=== PATIENT | female | born 1990 | race African-American/Black ===

== ENCOUNTER 2016-07-08 21:43 | Emergency (ER) | payer OTHER ==
[2016-07-08 21:54] VITALS: BMI 33.0
[2016-07-08 22:28] LABS: URINE APPEARANCE SLCLOUDY; URINE BILIRUBIN NEGATIVE (NEGATIVE); URINE BLOOD NEGATIVE (NEGATIVE); URINE COLOR YELLOW; URINE GLUCOSE (UA) NEGATIVE (NEGATIVE); URINE KETONE NEGATIVE (NEGATIVE); URINE LEUK ESTERASE NEGATIVE (NEGATIVE); URINE NITRITE NEGATIVE (NEGATIVE); URINE PROTEIN NEGATIVE (NEGATIVE); URINE UROBILINOGEN 2.0 E.U/dl E.U./dl (0.2-1.0)
--- NOTE | 2016-07-08 22:40 | PDOC ---
History of Present Illness - History of Present Illness Initial Comments: 07/08/16 22:57 The patient is a 25 year old, 6 week female, , with a significant past medical history of hypertension (during her ), who presents to the emergency department with right lower quadrant pain and low back pain for 2 days. She states her symptoms started as intermittent, however, has been constant since 4AM this morning despite taking Tylenol. She describes her RLQ pain as a dull stabbing and denies radiation of pain. She reports feeling sore to her lower back and bilateral hips. She states she had an ultrasound at [facility], but it was too early to see anything. She reports he next appointment at [facility] is next week. She denies chest pain, shortness of breath, headache and dizziness. She denies fever, chills, nausea, vomit, diarrhea and constipation. She denies dysuria, frequency, urgency and hematuria. LMP:05/28/16 Allergies: NKDA Past surgical history: Social history: denies toxic habits <Consuelo Ward - Last Filed: 07/09/16 02:03> <Natalya Calderón - Last Filed: 07/09/16 02:40> - General Chief Complaint: Pain, Acute Stated Complaint: 6 WEEK PREG, PAIN LOWER SIDE Time Seen by Provider: 07/08/16 22:03 Past History <Consuelo Ward - Last Filed: 07/09/16 02:03> - Past Medical History Asthma: No Cancer: No Cardiac Disorders: No Diabetes: No HTN: No Seizures: No Thyroid Disease: No - Reproductive History Is Patient Now?: Yes (#): 2 Para: 1 Therapeutic (s) & number: No Spontaneous : 1 - Immunization History Immunization Up to Date: Yes - Psycho/Social/Smoking Cessation Hx Anxiety: No Suicidal Ideation: No Smoking Status: No Smoking History: Never smoked Have you smoked in the past 12 months: No Number of Cigarettes Smoked Daily: 0 Information on smoking cessation initiated: No Hx Alcohol Use: No Drug/Substance Use Hx: No Substance Use Type: None Hx Substance Use Treatment: No <Natalya Calderón - Last Filed: 07/09/16 02:40> - Past Medical History Allergies/Adverse Reactions: Allergies Allergy/AdvReac Type Severity Reaction Status Date / Time No Known Allergies Allergy Verified 07/08/16 21:50 Home Medications: Ambulatory Orders NK [No Known Home Medication] 07/27/15 Review of Systems - Review of Systems Able to Perform ROS?: Yes Comments:: 07/08/16 22:58 CONSTITUTIONAL: Absent: fever, chills, diaphoresis, generalized weakness, malaise, loss of appetite HEENT: Absent: rhinorrhea, nasal congestion, throat pain, throat swelling, difficulty swallowing, mouth swelling, ear pain, eye pain, visual Changes CARDIOVASCULAR: Absent: chest pain, syncope, palpitations, irregular heart rate, lightheadedness , peripheral edema RESPIRATORY: Absent: cough, shortness of breath, dyspnea with exertion, orthopnea, wheezing, stridor, hemoptysis GASTROINTESTINAL: (+) RLQ abdominal pain, Absent: abdominal distension, nausea, vomiting, diarrhea , constipation, melena, hematochezia GENITOURINARY: Absent: dysuria, frequency, urgency, hesitancy, hematuria, flank pain, genital pain MUSCULOSKELETAL: (+) low back and bilateral hip pain. Absent: arthralgia, joint swelling SKIN: Absent: rash, itching, pallor HEMATOLOGIC/IMMUNOLOGIC: Absent: easy bleeding, easy bruising, lymphadenopathy, frequent infections ENDOCRINE: Absent: unexplained weight gain, unexplained weight loss, heat intolerance, cold intolerance NEUROLOGIC: Absent: headache, focal weakness or paresthesias, dizziness, unsteady gait, seizure, mental status changes, bladder or bowel incontinence PSYCHIATRIC: Absent: anxiety, depression, suicidal or homicidal ideation, hallucinations. <Consuelo Ward - Last Filed: 07/09/16 02:03> *Physical Exam - Vital Signs Last Vital Signs Temp Pulse Resp BP Pulse Ox 98.9 F 74 16 112/67 99 07/08/16 21:51 07/08/16 21:51 07/08/16 21:51 07/08/16 21:51 07/08/16 21:51 - Physical Exam Comments: 07/08/16 22:59 GENERAL: Well developed, well nourished. Awake and alert. No acute distress. HEENT: Normocephalic, atraumatic. PERRLA, EOMI. No conjunctival pallor. Sclera are non- icteric. Moist mucous membranes. Oropharynx is clear. NECK: Supple. Full ROM. No JVD. Carotid pulses 2+ and symmetric, without bruits. No thyromegaly. No lymphadenopathy. CARDIOVASCULAR: Regular rate and rhythm. No murmurs, rubs, or gallops. Distal pulses are 2+ and symmetric. PULMONARY: No evidence of respiratory distress. Lungs clear to auscultation bilaterally. No wheezing, rales or rhonchi. ABDOMINAL: (+) RLQ ttp. Soft. Non-distended. No rebound or guarding. No organomegaly. Normoactive bowel sounds. MUSCULOSKELETAL Normal range of motion at all joints. No bony deformities or tenderness. No CVA tenderness. EXTREMITIES: No cyanosis. No clubbing. No edema. No calf tenderness. SKIN: Warm and dry. Normal capillary refill. No rashes. No jaundice. NEUROLOGICAL: Alert, awake, appropriate. Cranial nerves 2-12 intact. Normoreflexic in the upper and lower extremities. Normal speech. Toes are down-going bilaterally. Gait is normal without ataxia. PSYCHIATRIC: Cooperative. Good eye contact. Appropriate mood and affect. <Consuelo Ward - Last Filed: 07/09/16 02:03> - Vital Signs Last Vital Signs Temp Pulse Resp BP Pulse Ox 98.9 F 74 16 112/67 99 07/08/16 21:51 07/08/16 21:51 07/08/16 21:51 07/08/16 21:51 07/08/16 21:51 <Natalya Calderón - Last Filed: 07/09/16 02:40> ED Treatment Course - LABORATORY CBC & Chemistry Diagram: 07/08/16 22:30 07/08/16 22:09 - ADDITIONAL ORDERS Additional order review: Laboratory Results 07/08/16 22:21 Urine Color Yellow Urine Appearance Slcloudy Urine pH 6.0 Ur Specific [place] 1.031 Urine Protein Negative Urine Glucose (UA) Negative Urine Ketones Negative Urine Blood Negative Urine Nitrite Negative Urine Bilirubin Negative Urine Urobilinogen 2.0 e.u/dl H Ur Leukocyte Esterase Negative 07/08/16 22:30 RBC 4.41 MCV 84.8 MCHC 33.0 RDW 13.5 MPV 9.8 Neutrophils % 50.6 Lymphocytes % 41.6 H Monocytes % 6.2 Eosinophils % 1.0 Basophils % 0.6 - RADIOLOGY Radiograph Interpretation: 07/09/16 01:17 EXAM: Transabdominal pelvic ultrasound was read by Vishnu Schwarz MD at 01: 08 EST INDICATION: Right lower quadrant pain FINDINGS: The appendix is not visualized. No free fluid. IMPRESSION: Nonvisualization of the appendix and therefore appendicitis cannot be excluded. 07/09/16 02:01 EXAM: Transabdominal ultrasound and transvaginal ultrasound was read by Cathy Ledesma MD at 01:55 EST TECHNIQUE: Grayscale and selected color doppler imaging was performed on portions of the pelvis. HISTORY: Threatened IMPRESSION: 1. There is a yolk sac within the gestational sac involving the endometrial canal. No pole is appreciated currently. These findings are consistent with an intrauterine . 2. There is a nonvascular heterogeneous structure measuring 2.0 cm x 2.4 cm x 2.9 cm. This appears adjacent to the right ovary and is of uncertain etiology. Mass or ectopic is not excluded in the proper clinical context. 3. There is no evidence of ovarian torsion. There is a corpus luteal cyst involving the right ovary. 4. There is a small amount of pelvic free fluid. Clinical correlation and followup evaluation is advised. Correlation with serum beta hCG values is advised. <Consuelo Ward - Last Filed: 07/09/16 02:03> - LABORATORY CBC & Chemistry Diagram: 07/08/16 22:30 07/08/16 22:09 <Natalya Calderón - Last Filed: 07/09/16 02:40> Medical Decision Making - Medical Decision Making 07/09/16 02:03 [facility] was paged via phone answering service requesting a call back for doctor to doctor consult. I understand Dr. Vanessa will return the call. <Consuelo Ward - Last Filed: 07/09/16 02:03> - Medical Decision Making 07/09/16 02:29 25-year-old female 2, para 1, presents because of right lower quadrant pain for 2 days. No fever, chills or vomiting or diarrhea On exam, she does have right lower quadrant tenderness. I requested an ultrasound looking at her appendix, but they did not visualize it -Reviewing her labs, her CBC is only 6 Her hCG about 8900 Spoke to the radiologist, Dr. Ledesma about her transvaginal ultrasound which showed a yolk sac and gestational sac within the uterus but no pole, so there is an intrauterine . However, there is also a nonvascular heterogeneous structure measuring 2 cm x 2.4 cm x 2.9 cm. This is adjacent to the right ovary and is of uncertain etiology. Mass or ectopic is not excluded There is no evidence of ovarian torsion There is a corpus luteal cyst involving the right ovary There is a small amount of free fluid The patient's doctor is Dr. Rick and we [facility] and left a message for the on-call physician, Dr. Gamez, but she has not returned the call Complained to the patient that there are 2 concerns. One is a concern that she may have a very early appendicitis and this will require her returning for an MRI tomorrow. The fact that she has had no nausea, no vomiting, and a white count of only 6 makes this less likely. Though she does have on her right pelvis free fluid, corpus luteal cyst, and of heterogeneous structure adjacent to the right ovary that may account for this pain. 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 If she continues to have the right lower quadrant pain, she needs to return within one day for an MRI of her abdomen to rule out appendicitis <Natalya Calderón - Last Filed: 07/09/16 02:40> *DC/Admit/Observation/Transfer - Attestations Scribe Attestion: 07/08/16 22:59 Documentation prepared by Consuelo Ward, acting as medical billing specialist for Natalya Calderón MD <Consuelo Ward - Last Filed: 07/09/16 02:03> <Natalya Calderón - Last Filed: 07/09/16 02:40> Diagnosis at time of Disposition: Right lower quadrant abdominal pain, Intrauterine , Corpus luteum cyst - Discharge Dispostion Disposition: HOME Condition at time of disposition: Stable - Referrals Referrals: Handy Prieto [Primary Care Provider] - - Patient Instructions Printed Discharge Instructions: DI for Abdominal Pain-Adult, DI for - - Discomforts and Remedies Additional Instructions: You need to have a repeat bhcg abd repeat pelvic ultrasound in 48 hours If your right lower abdominal pain worsens,return to the ER for MRI to rule out appendicitis
[2016-07-08 22:43] LABS: BASOPHIL 0.6 % (0-2.0); MEAN CELL VOLUME 84.8 fl (80-96); MEAN PLT VOLUME 9.8 fl (7.5-11.1); NEUTROPHILS 50.6 % (42.8-82.8); PLATELET COUNT 247 K/MM3 (134-434); RDW 13.5 % (11.6-15.6); WHITE BLOOD COUNT 6.3 K/mm3 (4.0-10.0)
[2016-07-08 23:20] LABS: ALBUMIN 3.4 g/dl (3.4-5.0); ANION GAP 8 (8-16); CALCIUM 9.1 mg/dL (8.5-10.1); CO2 27 mmol/L (21-32); CREATININE 0.7 mg/dL (0.55-1.02); GLUCOSE,RANDOM 84 mg/dL (74-106); SGOT/AST 15 U/L (15-37); SGPT/ALT 26 U/L (12-78)
[2016-07-08 23:22] LABS: ALK PHOS 54 U/L (45-117); BILIRUBIN,TOTAL 0.5 mg/dL (0.2-1.0); TOT PROT 7.4 g/dl (6.4-8.2)
[2016-07-09] MEDS ORDERED: ACETAMINOPHEN 325 MG TABLET (FP) ONE (01:04)
[2016-07-09 02:41] VITALS: BP 122/69; PULSE 80; TEMP 97.6
== END 2016-07-09 02:41 | disposition home or self-care (01) ==
LOC: JER 21:43
DX: O26.891 Other specified pregnancy related conditions, first trimester (principal); R10.31 Right lower quadrant pain; N83.10 Corpus luteum cyst of ovary, unspecified side; Z3A.01 Less than 8 weeks gestation of pregnancy
CPT/HCPCS: 36415; 76817-TC; 76856-TC; 80053; 81003; 84702; 85025; 86850; 86900; 86901; 99283-25

== ENCOUNTER 2016-07-12 17:57 | Emergency (ER) | payer OTHER ==
[2016-07-12 18:01] VITALS: BP 144/76; PULSE 18; TEMP 98.8; BMI 32.9
[2016-07-12] MEDS ORDERED: SODIUM CHLORIDE 1,000 ML IV STA (19:04)
[2016-07-12 19:15] LABS: MCHC 32.8 g/dl (32.0-36.0); MEAN CELL VOLUME 85.5 fl (80-96); MEAN PLT VOLUME 9.8 fl (7.5-11.1); NEUTROPHILS 49.2 % (42.8-82.8); PLATELET COUNT 221 K/MM3 (134-434); RDW 13.6 % (11.6-15.6); WHITE BLOOD COUNT 6.7 K/mm3 (4.0-10.0)
--- NOTE | 2016-07-12 19:17 | PDOC ---
History of Present Illness - General Chief Complaint: Syncope/Near Syncope Stated Complaint: INJURY/6WKS /HEADACHE Time Seen by Provider: 07/12/16 18:28 History Source: Patient Exam Limitations: No Limitations - History of Present Illness Presenting Symptoms: Syncope (near syncope) Timing/Duration: reports: resolved prior to arrival Activities at Onset: reports: none Prior Chest Pain/Cardiac Workup: reports: No prior chest pain Past History - Travel Traveled outside of the country in the last 30 days: No Close contact w/someone who was outside of country & ill: No - Past Medical History Allergies/Adverse Reactions: Allergies Allergy/AdvReac Type Severity Reaction Status Date / Time No Known Allergies Allergy Verified 07/12/16 18:01 Home Medications: Ambulatory Orders Vit/Iron Fumarate/FA [ Tablet] 1 each PO 07/12/16 Asthma: No Cancer: No Cardiac Disorders: No Diabetes: No HTN: No Seizures: No Thyroid Disease: No - Reproductive History Is Patient Now?: Yes (#): 2 Para: 1 Cervical CA: No Dysfunctional Uterine Bleeding: No Ectopic : No Endometrial CA: No Polycystic Ovaries: No Therapeutic (s) & number: No Tubal Ligation: No Spontaneous : 0 - Immunization History Immunization Up to Date: Yes - Psycho/Social/Smoking Cessation Hx Anxiety: No Suicidal Ideation: No Smoking Status: No Smoking History: Never smoked Have you smoked in the past 12 months: No Number of Cigarettes Smoked Daily: 0 Information on smoking cessation initiated: No Hx Alcohol Use: No Drug/Substance Use Hx: No Substance Use Type: None Hx Substance Use Treatment: No Cardiac Specific PMH - Complaint Specific PMHX Abdominal Aortic Aneurysm: No Angina: No Cardiac Arrhythmia: No Cardiac Stent: No Review of Systems - Review of Systems Able to Perform ROS?: Yes Comments:: 07/12/16 19:13 CONSTITUTIONAL: Absent: fever, chills, diaphoresis, generalized weakness, malaise, loss of appetite HEENT: Absent: rhinorrhea, nasal congestion, throat pain, throat swelling, difficulty swallowing, mouth swelling, ear pain, eye pain, visual Changes CARDIOVASCULAR: Absent: chest pain, loss of consciousness, palpitations, irregular heart rate, peripheral edema RESPIRATORY: Absent: cough, shortness of breath, dyspnea with exertion, orthopnea, wheezing, stridor, hemoptysis GASTROINTESTINAL: Absent: abdominal pain, abdominal distension, nausea, vomiting, diarrhea, constipation, melena, hematochezia GENITOURINARY: Absent: dysuria, frequency, urgency, hesitancy, hematuria, flank pain, genital pain MUSCULOSKELETAL: Absent: myalgia, arthralgia, joint swelling SKIN: Absent: rash, itching, pallor HEMATOLOGIC/IMMUNOLOGIC: Absent: easy bleeding, easy bruising, lymphadenopathy, frequent infections ENDOCRINE: Absent: unexplained weight gain, unexplained weight loss, heat intolerance, cold intolerance NEUROLOGIC: near syncope, Right temportal and retro orbital mallory Absent: focal weakness or paresthesias, dizziness, unsteady gait, seizure, mental status changes, bladder or bowel incontinence PSYCHIATRIC: Absent: anxiety, depression, suicidal or homicidal ideation, hallucinations. 07/12/16 19:13 Is the patient limited Andorran proficient: No *Physical Exam - Vital Signs Last Vital Signs Temp Pulse Resp BP Pulse Ox 98.8 F 18 L 18 144/76 99 07/12/16 17:59 07/12/16 17:59 07/12/16 17:59 07/12/16 17:59 07/12/16 18:49 - Physical Exam Comments: 07/12/16 19:13 GENERAL: Well developed, well nourished. Awake and alert. No acute distress. HEENT: Normocephalic, atraumatic. PERRLA, EOMI. No conjunctival pallor. Sclera are non- icteric. Moist mucous membranes. Oropharynx is clear. NECK: Supple. Full ROM. No JVD. Carotid pulses 2+ and symmetric, without bruits. No thyromegaly. No lymphadenopathy. CARDIOVASCULAR: Regular rate and rhythm. No murmurs, rubs, or gallops. Distal pulses are 2+ and symmetric. PULMONARY: No evidence of respiratory distress. Lungs clear to auscultation bilaterally. No wheezing, rales or rhonchi. ABDOMINAL: Soft. Non-tender. Non-distended. No rebound or guarding. No organomegaly. Normoactive bowel sounds. MUSCULOSKELETAL Normal range of motion at all joints. No bony deformities or tenderness. No CVA tenderness. EXTREMITIES: No cyanosis. No clubbing. No edema. No calf tenderness. SKIN: Warm and dry. Normal capillary refill. No rashes. No jaundice. NEUROLOGICAL: Alert, awake, appropriate. Cranial nerves 2-12 intact. No deficits to light touch and temperature in face, upper extremities and lower extremities. No motor deficits in the in face, upper extremities and lower extremities. Normoreflexic in the upper and lower extremities. Normal speech. Toes are down- going bilaterally. Gait is normal without ataxia. PSYCHIATRIC: Cooperative. Good eye contact. Appropriate mood and affect. ED Treatment Course - LABORATORY CBC & Chemistry Diagram: 07/12/16 19:00 07/12/16 19:00 - ADDITIONAL ORDERS Additional order review: Laboratory Results 07/12/16 07/12/16 07/12/16 19:10 19:00 19:00 Sodium 138 Potassium 3.9 Chloride 105 Carbon Dioxide 25 Anion Gap 8 BUN 9 Creatinine 0.6 Creat Clearance w eGFR > 60 Random Glucose 76 Calcium 9.3 Total Bilirubin 0.3 D AST 16 ALT 51 D Alkaline Phosphatase 58 Total Protein 7.4 Albumin 3.3 L Beta HCG, Quant 71014.3 Blood Type O POSITIVE Antibody Screen Negative 07/12/16 19:00 RBC 4.25 MCV 85.5 MCHC 32.8 RDW 13.6 MPV 9.8 Neutrophils % 49.2 Lymphocytes % 40.1 H Monocytes % 8.7 Eosinophils % 1.0 Basophils % 1.0 - Medications Given in the ED: ED Medications Discontinued Medications Generic Name Dose Route Start Last Admin Trade Name Freq PRN Reason Stop Dose Admin Sodium Chloride 1,000 mls @ 1,000 mls/hr 07/12/16 19:04 07/12/16 19:30 Normal Saline - IV 07/12/16 20:03 1,000 mls/hr ASDIR STA Administration Progress Note - Progress Note Progress Note: 25-year-old female presents to the emergency department complaining of near syncope prior to her arrival when bearing down. Patient says she woke up this morning with a right-sided temporal and retro-orbital orbital headache, 6/10 dull intermittent discomfort radiating down right side of her neck which subsided since arriving to the ER. While she was in the restroom at home, she felt warm with hot flasheswhich she's been experiencing for the past 3 months. She told her mother that she didn't feel well and insisted on sitting down which is her description of near syncope. Patient denies dizziness, lightheadedness, headache at this time, back pain, chest pain, shortness of breath, abdominal pains, vaginal bleeding/discharge, urinary symptoms: Frequency /urgency/hesitancy, hematuria. LMP 05/28/2016 2012: Patient had preeclampsia Patient is under the care of Dr[facility]. She was seen last week after complaining of right lower quadrant pain 1 week. Patient had an ultrasound and was later sent for an MRI at [facility]. Patient was informed the MRI was not helpful but states it was a heterotopic . VS: supine 142/70 Pulse 80 resp 18 Sitting 144/76 Puse 78 resp 18 Standing 144/70 Pulse 78 resp 18 *DC/Admit/Observation/Transfer Diagnosis at time of Disposition: Vasovagal near syncope Headache Qualifiers: Headache type: tension-type Headache chronicity pattern: acute headache Intractability: not intractable Qualified Code(s): G44.209 - Tension-type headache, unspecified, not intractable - Discharge Dispostion Disposition: HOME Condition at time of disposition: Improved Admit: No - Referrals Referrals: Handy Prieto [Primary Care Provider] - Bobby Ray MD [Staff Physician] - - Patient Instructions Printed Discharge Instructions: DI for Syncope in Adults (Fainting) Additional Instructions: Increase fluids Rest Follow up with the neurologist listed on your discharge 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
[2016-07-12 19:42] LABS: ALBUMIN 3.3 g/dl (3.4-5.0); ANION GAP 8 (8-16); CALCIUM 9.3 mg/dL (8.5-10.1); CO2 25 mmol/L (21-32); CREATININE 0.6 mg/dL (0.55-1.02); GLUCOSE,RANDOM 76 mg/dL (74-106); SGOT/AST 16 U/L (15-37); SGPT/ALT 51 U/L (12-78)
[2016-07-12 19:43] LABS: ALK PHOS 58 U/L (45-117); BILIRUBIN,TOTAL 0.3 mg/dL (0.2-1.0); TOT PROT 7.4 g/dl (6.4-8.2)
--- NOTE | 2016-07-14 13:34 | EKG ---
Test Reason : Blood Pressure : / mmHG Vent. Rate : 066 BPM Atrial Rate : 066 BPM P-R Int : 158 ms QRS Dur : 084 ms QT Int : 398 ms P-R-T Axes : 020 067 042 degrees QTc Int : 417 ms NORMAL SINUS RHYTHM WITH SINUS ARRHYTHMIA NORMAL ECG WHEN COMPARED WITH ECG OF 01-DEC-2014 22:55, NO SIGNIFICANT CHANGE WAS FOUND Confirmed by ALY HENRY MD ([id number]) on 07/14/2016 1:34:30 PM Referred By: Confirmed By:ALY HENRY MD
== END 2016-07-12 21:00 | disposition home or self-care (01) ==
LOC: JER 17:57
PROC: 3E0337Z Introduction of Electrolytic and Water Balance Substance into Peripheral Vein, Percutaneous Approach (ICD-10-PCS; principal; 2016-07-12)
DX: O26.891 Other specified pregnancy related conditions, first trimester (principal); R55 Syncope and collapse; G44.209 Tension-type headache, unspecified, not intractable; Z3A.01 Less than 8 weeks gestation of pregnancy
CPT/HCPCS: 36415; 80053; 84702; 85025; 86850; 86900; 86901; 93005; 93010; 96360; 99284-25

== ENCOUNTER 2016-09-30 07:14 | Emergency (ER) | payer OTHER ==
[2016-09-30 07:33] VITALS: BMI 32.9
--- NOTE | 2016-09-30 07:44 | PDOC ---
History of Present Illness - General Chief Complaint: Pain Stated Complaint: 18 WKS PREG,ABD/VAGINAL CRAMPING Time Seen by Provider: 09/30/16 07:38 History Source: Patient Exam Limitations: No Limitations - History of Present Illness Travel History: No Initial Comments: 09/30/16 07:43 26-year-old female 18 weeks presents with vaginal pressure and cramping radiating from her suprapubic area to her lower back. Patient also states dysuria and pressure since yesterday. Patient denies vaginal discharge, vaginal bleeding, nausea, fever, diarrhea, or radiation of pain to her upper abdominal region. Patient states is followed by Dr. Vanessa and has had normal ultrasounds/exams for this . Timing/Duration: reports: constant Quality: reports: mild Abdominal Pain Onset Location: reports: suprapubic Pain Radiation: reports: no radiation Activities at Onset: reports: none Aggravating Factors: improves with: None Alleviating Factors: improves with: None Past History - Past Medical History Allergies/Adverse Reactions: Allergies Allergy/AdvReac Type Severity Reaction Status Date / Time No Known Allergies Allergy Verified 09/30/16 07:31 Home Medications: Ambulatory Orders Vit/Iron Fumarate/FA [ Tablet] 1 each PO DAILY 07/12/16 Asthma: No Cancer: No Cardiac Disorders: No Diabetes: No HTN: No Seizures: No Thyroid Disease: No - Reproductive History Is Patient Now?: Yes (#): 2 Para: 1 Cervical CA: No Dysfunctional Uterine Bleeding: No Ectopic : No Endometrial CA: No Polycystic Ovaries: No Therapeutic (s) & number: No Tubal Ligation: No Spontaneous : 0 - Immunization History Immunization Up to Date: Yes - Psycho/Social/Smoking Cessation Hx Anxiety: No Suicidal Ideation: No Smoking Status: No Smoking History: Never smoked Have you smoked in the past 12 months: No Number of Cigarettes Smoked Daily: 0 Information on smoking cessation initiated: No Hx Alcohol Use: No Drug/Substance Use Hx: No Substance Use Type: None Hx Substance Use Treatment: No Patient Lives Alone: No Lives with/in: spouse/SO Review of Systems - Review of Systems Able to Perform ROS?: Yes Constitutional: No: Symptoms Reported HEENTM: No: Symptoms Reported Respiratory: No: Symptoms reported Cardiac (ROS): No: Symptoms Reported ABD/GI: Yes: Abdominal cramping : Yes: Dysuria. No: Discharge Musculoskeletal: Yes: Back Pain (low) Integumentary: No: Symptoms Reported Neurological: No: Symptoms reported Endocrine: No: Symptoms Reported Hematologic/Lymphatic: No: Symptoms Reported *Physical Exam - Vital Signs Last Vital Signs Temp Pulse Resp BP Pulse Ox 98.6 F 85 18 147/57 99 09/30/16 07:28 09/30/16 07:28 09/30/16 07:28 09/30/16 07:28 09/30/16 07:28 - Physical Exam General Appearance: Yes: Nourished, Appropriately Dressed. No: Apparent Distress Respiratory/Chest: positive: Lungs Clear, Normal Breath Sounds. negative: Respiratory Distress, Accessory Muscle Use Cardiovascular: positive: Regular Rhythm, Regular Rate. negative: Murmur Gastrointestinal/Abdominal: positive: Normal Bowel Sounds, Soft, Tenderness ( generalized suprapubic) Musculoskeletal: negative: CVA Tenderness Extremity: positive: Normal Capillary Refill. negative: Pedal Edema Integumentary: positive: Normal Color, Warm, Moist Neurologic: positive: Motor Strength 5/5 (ambulatory) ED Treatment Course - LABORATORY CBC & Chemistry Diagram: 09/30/16 07:40 09/30/16 07:40 - RADIOLOGY Radiology Studies Ordered: Category Date Time Status FOLLOW-UP US [US] Stat Ultrasound 09/30/16 07:39 Ordered Medical Decision Making - Medical Decision Making 09/30/16 07:45 Currently 18 weeks with lower abdominal pressure and cramping associated with dysuria for the past 2 days. Patient states took Tylenol with no relief. Patient on exam had no acute findings except for lower abdominal pain. Patient ordered for urine, labs and ultrasound. 09/30/16 10:59 Laboratory Tests 09/30/16 09/30/16 09/30/16 07:40 07:40 07:40 WBC 7.2 Hgb 12.1 Hct 36.5 Plt Count 237 Sodium 138 Potassium 3.9 Chloride 103 Carbon Dioxide 24 Anion Gap 11 BUN 3 L D Creatinine 0.4 L D Random Glucose 88 Calcium 9.5 Magnesium 1.9 Total Bilirubin 0.4 D AST 12 L D Albumin 3.1 L Urine Ketones Negative Urine Nitrite Negative Ur Leukocyte Esterase Negative Ultrasound shows a single live intrauterine gestation 17 weeks 6 days with a heart rate of 1 47 bpm. The fetus is in breech presentation at this present time. Cervical os was closed. Labs were normal and patient will be recommended to follow-up with POSTMASTER as this may be related to round ligament pain. 09/30/16 11:00 *DC/Admit/Observation/Transfer Diagnosis at time of Disposition: Abdominal pain during intrauterine - Discharge Dispostion Disposition: HOME Condition at time of disposition: Good - Referrals Referrals: Handy Prieto [Primary Care Provider] - Shiela Vanessa DO [Staff Physician] - - Patient Instructions Printed Discharge Instructions: DI for Abdominal Pain -- Early Additional Instructions: Continue take Tylenol for discomfort and please follow up with Dr. Vanessa as discussed. At this time you may also try placing a heating pad to the affected area to alleviate some of your discomfort
--- NOTE | 2016-09-30 08:01 | PDOC ---
*Physical Exam - Vital Signs Last Vital Signs Temp Pulse Resp BP Pulse Ox 98.6 F 85 18 147/57 99 09/30/16 07:28 09/30/16 07:28 09/30/16 07:28 09/30/16 07:28 09/30/16 07:28 - Physical Exam Comments: 09/30/16 08:01 MIDLEVEL NOTE Pt seen by Midlevel Provider under my direct supervision. Pt interviewed and examined. Ancillary studies reviewed. I agree with plan as outlined by Midlevel Provider. 09/30/16 09:45 Laboratory Results - last 24 hr 09/30/16 09/30/16 09/30/16 07:40 07:40 07:40 WBC 7.2 RBC 4.28 Hgb 12.1 Hct 36.5 MCV 85.2 MCHC 33.2 RDW 13.4 Plt Count 237 MPV 9.4 Neutrophils % 61.1 D Lymphocytes % 33.0 Monocytes % 5.2 Eosinophils % 0.4 Basophils % 0.3 Sodium 138 Potassium 3.9 Chloride 103 Carbon Dioxide 24 Anion Gap 11 BUN 3 L D Creatinine 0.4 L D Creat Clearance w eGFR > 60 Random Glucose 88 Calcium 9.5 Magnesium 1.9 Total Bilirubin 0.4 D AST 12 L D ALT 29 D Alkaline Phosphatase 64 Total Protein 7.4 Albumin 3.1 L Urine Color Ltyellow Urine Appearance Clear Urine pH 7.0 Ur Specific [place] 1.010 Urine Protein Negative Urine Glucose (UA) Negative Urine Ketones Negative Urine Blood Negative Urine Nitrite Negative Urine Bilirubin Negative Urine Urobilinogen Negative Ur Leukocyte Esterase Negative 09/30/16 11:02 Pelvic ultrasound-TA/TV Single live intrauterine gestation 17 weeks and 6 days, with a heart rate of 1 47 bpm The placenta is anterior, and an adequate amount of amniotic fluid is identified Cervical length 4.3 cm, with a closed cervix ED Treatment Course - LABORATORY CBC & Chemistry Diagram: 09/30/16 07:40 09/30/16 07:40 *DC/Admit/Observation/Transfer Diagnosis at time of Disposition: Abdominal pain during intrauterine - Discharge Dispostion Disposition: HOME Condition at time of disposition: Good - Referrals Referrals: Shiela Vanessa DO [Staff Physician] - Handy Prieto [Primary Care Provider] - - Patient Instructions Printed Discharge Instructions: DI for Abdominal Pain -- Early Additional Instructions: Continue take Tylenol for discomfort and please follow up with Dr. Vanessa as discussed. At this time you may also try placing a heating pad to the affected area to alleviate some of your discomfort
[2016-09-30 08:32] LABS: BASOPHIL 0.3 % (0-2.0); EOSINOPHIL 0.4 % (0-4.5); MCH 28.3 pg (25.7-33.7); MCHC 33.2 g/dl (32.0-36.0); MEAN CELL VOLUME 85.2 fl (80-96); MEAN PLT VOLUME 9.4 fl (7.5-11.1); NEUTROPHILS 61.1 % (42.8-82.8); PLATELET COUNT 237 K/MM3 (134-434); RDW 13.4 % (11.6-15.6); WHITE BLOOD COUNT 7.2 K/mm3 (4.0-10.0)
[2016-09-30 08:46] LABS: URINE APPEARANCE CLEAR; URINE BILIRUBIN NEGATIVE (NEGATIVE); URINE BLOOD NEGATIVE (NEGATIVE); URINE COLOR LTYELLOW; URINE GLUCOSE (UA) NEGATIVE (NEGATIVE); URINE KETONE NEGATIVE (NEGATIVE); URINE LEUK ESTERASE NEGATIVE (NEGATIVE); URINE NITRITE NEGATIVE (NEGATIVE); URINE PROTEIN NEGATIVE (NEGATIVE); URINE UROBILINOGEN NEGATIVE E.U./dl (0.2-1.0)
[2016-09-30 09:00] LABS: ALBUMIN 3.1 g/dl (3.4-5.0); ALK PHOS 64 U/L (45-117); ANION GAP 11 (8-16); BILIRUBIN,TOTAL 0.4 mg/dL (0.2-1.0); CALCIUM 9.5 mg/dL (8.5-10.1); CO2 24 mmol/L (21-32); CREATININE 0.4 mg/dL (0.55-1.02); GLUCOSE,RANDOM 88 mg/dL (74-106); MAGNESIUM 1.9 mg/dL (1.8-2.4); SGOT/AST 12 U/L (15-37); SGPT/ALT 29 U/L (12-78); TOT PROT 7.4 g/dl (6.4-8.2)
[2016-09-30 11:21] VITALS: BP 113/64; PULSE 78; TEMP 98
== END 2016-09-30 11:25 | disposition home or self-care (01) ==
LOC: JER 07:14
DX: O26.892 Other specified pregnancy related conditions, second trimester (principal); R10.30 Lower abdominal pain, unspecified; Z3A.17 17 weeks gestation of pregnancy
CPT/HCPCS: 36415; 76816-TC; 76817-TC; 80053; 81003; 83735; 85025; 87086; 99283-25

== ENCOUNTER → 2016-10-03 | Emergency (ER) | payer OTHER ==
[2016-10-03 11:25] VITALS: BP 115/75; PULSE 80; TEMP 98.1; BMI 33.0
[2016-10-03 13:33] LABS: URINE APPEARANCE CLEAR; URINE BILIRUBIN NEGATIVE (NEGATIVE); URINE BLOOD NEGATIVE (NEGATIVE); URINE COLOR COLORLESS; URINE GLUCOSE (UA) NEGATIVE (NEGATIVE); URINE KETONE NEGATIVE (NEGATIVE); URINE LEUK ESTERASE NEGATIVE (NEGATIVE); URINE NITRITE NEGATIVE (NEGATIVE); URINE PROTEIN NEGATIVE (NEGATIVE); URINE UROBILINOGEN NEGATIVE E.U./dl (0.2-1.0)
--- NOTE | 2016-10-03 14:08 | PDOC ---
History of Present Illness - General Chief Complaint: Constipation Stated Complaint: SENT BY PCP Time Seen by Provider: 10/03/16 13:14 History Source: Patient Exam Limitations: No Limitations - History of Present Illness Travel History: No Initial Comments: 10/03/16 14:00 26y F approx 18 weeks gestation presents with abdominal pain. Pt sates she has been feeling intermittent crampy abdominal pain that is worse in the RLQ and RUQ - usually worse when she eats/drinks. The pt staets she has not had a BM in 11 days. Thre is no associated n/v, f/c. The pt deneis feeling like taking a BM, state she has intermittently tried things like colace, enema, metamucil withint improvement. The pt came to the ED for evaluation of similar sypmtoms had lab work that was negative with normal US, and normal lab and UA. The pt states her sypmtoms are exactly the same, intermittent pain that worsens when she eats w/o other sypmtoms. Pt denies feeling senastion of wanting to have a BM. pt denies any current pain, vaginal bleeding, dysuria, diarrhea, melena, cp, sob. Past History - Past Medical History Allergies/Adverse Reactions: Allergies Allergy/AdvReac Type Severity Reaction Status Date / Time No Known Allergies Allergy Verified 10/03/16 11:23 Home Medications: Ambulatory Orders Vit/Iron Fumarate/FA [ Tablet] 1 each PO DAILY 07/12/16 Asthma: No Cancer: No Cardiac Disorders: No Diabetes: No HTN: No Seizures: No Thyroid Disease: No - Reproductive History (#): 2 Para: 1 Cervical CA: No Dysfunctional Uterine Bleeding: No Ectopic : No Endometrial CA: No Polycystic Ovaries: No Therapeutic (s) & number: No Tubal Ligation: No Spontaneous : 0 - Immunization History Immunization Up to Date: Yes - Psycho/Social/Smoking Cessation Hx Anxiety: No Suicidal Ideation: No Smoking Status: No Smoking History: Never smoked Have you smoked in the past 12 months: No Number of Cigarettes Smoked Daily: 0 Information on smoking cessation initiated: No Hx Alcohol Use: No Drug/Substance Use Hx: No Substance Use Type: None Hx Substance Use Treatment: No Review of Systems - Review of Systems Able to Perform ROS?: Yes Comments:: 10/03/16 14:12 Constitutional - no reported Fever, Chills, weakness, HEENT: no reported vision changes, sore throat Respiratory: no reported cough, sob, hemoptysis Cardiac: no reported chest pain, palpitations, light headedness, leg swelling Abd/GI: + abd pain, constipation no reported nausea, vomiting, blood per rectum , melena, diarrhea : no reported dysuria, frequency, discharge Musculskelatal - no reported back pain, joint swelling skin - no reported bruising, erythema, rash neurological: no reported headache, numbness, focal weakness, tingling, ataxia, weakness hematologic: no reported anemia, easy bruising, easy bleeding *Physical Exam - Vital Signs Last Vital Signs Temp Pulse Resp BP Pulse Ox 98.1 F 80 18 115/75 98 10/03/16 11:23 10/03/16 11:23 10/03/16 11:23 10/03/16 11:23 10/03/16 11:23 - Physical Exam Comments: 10/03/16 14:13 GENERAL: The patient is awake, alert, and fully oriented, Nontoxic - in no acute distress. HEAD: Normocephalic, atraumatic. EYES: extraocular movements intact, sclera anicteric, conjunctiva clear. ENT: Normal voice, Moist mucous membranes. NECK: Normal range of motion, supple LUNGS: Breath sounds equal, clear to auscultation bilaterally. No wheezes, no rhonchi, no rales. HEART: Regular rate and rhythm, normal S1 and S2 without murmur, rub or gallop. ABDOMEN: gravid abdomen, very mild tenderness on R abd, unable to palpate any masses, no cva tendreness EXTREMITIES: Normal range of motion, no edema. No clubbing or cyanosis. No cords, erythema, or tenderness. NEUROLOGICAL: No facial assymetry, Normal speech, PSYCH: Normal mood, normal affect. SKIN: Warm, Dry, normal turgor, ED Treatment Course - ADDITIONAL ORDERS Additional order review: Laboratory Results 10/03/16 13:15 Urine Color Colorless Urine Appearance Clear Urine pH 7.0 Ur Specific [place] 1.002 Urine Protein Negative Urine Glucose (UA) Negative Urine Ketones Negative Urine Blood Negative Urine Nitrite Negative Urine Bilirubin Negative Urine Urobilinogen Negative Ur Leukocyte Esterase Negative Medical Decision Making - Medical Decision Making 10/03/16 14:13 suspect seconary to constipation considered appendicitis, but symptomsincosnsistent with waxing waning pain that worsens with food intake and no systemic complaints will discuss with dr. ferguson 10/03/16 16:39 pt eloped prior to discharge case was d/w dr. ferguson who agrees with supportive management (miralax, metamucil, colace, hydration) *DC/Admit/Observation/Transfer Diagnosis at time of Disposition: Constipation Qualifiers: Constipation type: other constipation type Qualified Code(s): K59.09 - Other constipation - Discharge Dispostion Disposition: ELOPED - Referrals Referrals: Handy Prieto [Primary Care Provider] -
== END | disposition home or self-care (01) ==
LOC: JER 11:21
DX: O26.892 Other specified pregnancy related conditions, second trimester (principal); K59.00 Constipation, unspecified; Z3A.18 18 weeks gestation of pregnancy
CPT/HCPCS: 81003; 99282-25

== ENCOUNTER 2016-11-28 16:38 | Emergency (ER) | payer OTHER ==
[2016-11-28 16:59] VITALS: BMI 34.0
[2016-11-28 17:43] VITALS: BP 96/52; PULSE 79; TEMP 98.2
== END 2016-11-28 18:10 | disposition home or self-care (01) ==
LOC: JER 16:38
DX: O26.891 Other specified pregnancy related conditions, first trimester (principal); R10.2 Pelvic and perineal pain; K62.89 Other specified diseases of anus and rectum; Z3A.25 25 weeks gestation of pregnancy
CPT/HCPCS: 99281-25

== ENCOUNTER 2017-02-25 08:00 | Inpatient (IN) | payer OTHER ==
[2017-02-25 08:41] VITALS: BMI 35.9
[2017-02-25] MEDS ORDERED: ELECTROLYTE-148 SOLN 1,000 ML IV SCH (09:00)
[2017-02-25] MEDS ORDERED: METHYLERGONOVINE MALEATE 0.2 MG/1 ML AMP IM PRN (09:25)
[2017-02-25] MEDS ORDERED: oxyCODONE HCL 5 MG TABLET PO PRN (09:25)
--- NOTE | 2017-02-25 09:47 | HP ---
Past Medical History - Admission History of Present Illness: 26 y/o with SIUP at 39 weeks here for scheduled repeat delivery. Prior delivery X 1. Pt initially desired TOLAC but now is requesting elective repeat delivery. complicated by maternal obesity. FOB born with club feet. All testing completed and normal. GBs positive, HIV negative. RPR non reactive, HepBSag negative. No other issues throughout . Pt feeling well today, +FM no VB/LOF/ Ctx. History Source: Patient, Medical Record Limitations to Obtaining History: No Limitations - Past Medical History Cardiovascular: No: AFIB, HTN, NH Pulmonary: No: Asthma, Cancer, COPD Gastrointestinal: No: Constipation, GERD Hepatobiliary: No: Hepatitis B, Hepatitis C Renal/: No: UTI ...: 2 ...Para: 1 ...Term: 1 ...LMP: 05/28/16 ... Weeks Gestation by Dates: 38.6 ...EDC by Dates: 03/05/17 ...EDC by Sono: 03/04/17 Infectious Disease: No: MRSA, STD's Psych: No: Anxiety, Bipolar, Depression Endocrine: No: Diabetes Mellitus, Hyperthyroidism, SIADH - Past Surgical History Past Surgical History: Yes: Hx Myomectomy: No Hx Transabdominal Cerclage: No - Smoking History Smoking history: Never smoked Have you smoked in the past 12 months: No Aproximately how many cigarettes per day: 0 - Alcohol/Substance Use Hx Alcohol Use: No - Social History ADL: Independent History of Recent Travel: No Home Medications - Allergies Allergies/Adverse Reactions: Allergies Allergy/AdvReac Type Severity Reaction Status Date / Time No Known Allergies Allergy Verified 11/28/16 16:47 - Home Medications Home Medications: Ambulatory Orders Vit/Iron Fumarate/FA [ Tablet] 1 each PO DAILY MDD 1 07/12/16 Tablet 02/25/17 Review of Systems - Review of Systems Constitutional: reports: No Symptoms Eyes: reports: No Symptoms HENT: reports: No Symptoms Neck: reports: No Symptoms Cardiovascular: reports: No Symptoms Respiratory: reports: No Symptoms Gastrointestinal: reports: No Symptoms Genitourinary: reports: No Symptoms Breasts: reports: No Symptoms Reported Musculoskeletal: reports: No Symptoms Integumentary: reports: No Symptoms Neurological: reports: No Symptoms Endocrine: reports: No Symptoms Hematology/Lymphatic: reports: No Symptoms Psychiatric: reports: No Symptoms Physical Exam - Maternity Vital Signs: Vital Signs Temperature 99.1 F 02/25/17 08:33 Pulse Rate 80 02/25/17 08:33 Respiratory Rate 18 02/25/17 08:33 Blood Pressure 129/64 02/25/17 08:33 O2 Sat by Pulse Oximetry (%) Constitutional: Yes: Well Nourished, No Distress Eyes: Yes: WNL, Conjunctiva Clear, EOM Intact Neck: Yes: Supple, Trachea Midline Cardiovascular: Yes: Regular Rate and Rhythm Lungs: Clear to auscultation - Abdominal Exam/OB Number of Fetuses: Single Presentation: Vertex Contractions: Yes Regularity: Irregular Intensity: Mild Monitor Mode: External Category: I Accelerations: Uniform Decelerations: None - Vaginal Exam/OB Vaginal Bleediing: No Amniotic Membrane Status: Intact Presentation: Vertex/Position - Physical Exam Psychiatric: Yes: Alert, Oriented Hemorrhage Risk Assessment - Risk Factors Medium Risk Factors: Yes: Prior , uterine surgery,or multiple laparotomies High Risk Factors: Yes: None Risk Score: 1 Risk Level: Medium Risk Problem List - Problems (1) History of delivery Code(s): Z98.891 - HISTORY OF UTERINE SCAR FROM PREVIOUS SURGERY (2) Obesity affecting in third trimester Code(s): O99.213 - OBESITY COMPLICATING , THIRD TRIMESTER (3) Obesity (BMI 35.0-39.9 without comorbidity) Code(s): E66.9 - OBESITY, UNSPECIFIED Assessment/Plan 26 y/o with SIUP at 39 weeks for scheduled repeat c section - AFVSS - FHTS cat 1 - NPO, SCDs, Pina catheter - Nursing and anesthesia aware
[2017-02-25] MEDS ORDERED: CITRIC ACID/SODIUM CITRATE 30 ML UNIT-DOSE CUP PO ONE (10:00)
--- NOTE | 2017-02-25 11:08 | OP ---
Operative Note - Note: Operative Date: 02/25/17 Pre-Operative Diagnosis: SIUP at 39 weeks, declines TOLAC Operation: repeat delivery Findings: normal bilateral tubes and ovaries Post-Operative Diagnosis: Same as Pre-op Surgeon: Shiela Vanessa [employer] Transportation Director: Vinny Garg Anesthesiologist/FUSING LINE INSPECTOR: Mayte De Leon Anesthesia: Spinal Specimens Removed: placenta Estimated Blood Loss (mls): 700 Operative Report Dictated: Yes
[2017-02-25] MEDS ORDERED: ONDANSETRON 4 MG/2 ML VIAL IVPB PRN (11:30)
[2017-02-25] MEDS: OXYTOCIN 20 UNITS in 0.9% NS 1,000 ML IV SCH ×2 (11:45→20:30)
[2017-02-25] MEDS: FERROUS SO4 325 MG TABLET (FP) PO SCH ×2 (13:09→21:38)
[2017-02-25] MEDS: IBUPROFEN 800 MG/8 ML IJ IVPB PRN ×2 (14:25→21:30)
[2017-02-26] MEDS: ACETAMINOPHEN 325 MG TABLET (FP) PO PRN ×2 (05:48→20:25)
[2017-02-26] MEDS: SIMETHICONE 80 MG TAB.CHEW (FP) PO PRN ×3 (05:48→20:25)
[2017-02-26] MEDS: IBUPROFEN 600 MG TABLET (FP) PO PRN ×2 (05:49→13:18)
--- NOTE | 2017-02-26 08:15 | PN ---
Progress Note (short form) - Note Progress Note: Anesthesiology Post-op POD#1 s/p C/S under spinal anesthesia. Pt. is feeling well, pain is present but eased with medications. She is currently OOB in chair. Denies h/a and is able to walk and use the restroom without difficulty. VSS.
[2017-02-26] MEDS: oxyCODONE HCL 5 MG TABLET PO PRN ×2 (08:38→13:20)
[2017-02-26 08:46] LABS: BASOPHIL 0.2 % (0-2.0); EOSINOPHIL 0.6 % (0-4.5); MCH 28.8 pg (25.7-33.7); MCHC 32.8 g/dl (32.0-36.0); MEAN CELL VOLUME 87.8 fl (80-96); NEUTROPHILS 75.7 % (42.8-82.8); PLATELET COUNT 179 K/MM3 (134-434); RDW 14.1 % (11.6-15.6)
[2017-02-26] MEDS: FERROUS SO4 325 MG TABLET (FP) PO SCH ×2 (09:50→21:16)
[2017-02-26] MEDS ORDERED: FLU VACC QS2017-18 36MOS UP/PF 60 MCG/0.5 ML SYRINGE IM ONE (10:00)
[2017-02-26] MEDS ORDERED: DIPHTH,PERTUSS(ACELL),TET 0.5 ML DISP.SYRIN IM ONE (10:00)
--- NOTE | 2017-02-26 10:45 | PN ---
Post Progress Note - Subjective Subjective: Pt seen/evaluated and doing well. Had some pain overnight, but after taking oxycodone along with Motrin, pt feels much improved. OOB to chair upon my arrival. Pt ambulating, voiding and tolerating clears without difficulty. No flatus yet. VB moderate and slowing. No CP/SOB/F/C/WILL or any other complaints/ issues. Type of Delivery: Repeat C/S Vital Signs: Vital Signs Temperature 99 F 02/26/17 05:53 Pulse Rate 87 02/26/17 05:53 Respiratory Rate 20 02/26/17 09:00 Blood Pressure 121/76 02/26/17 05:53 O2 Sat by Pulse Oximetry (%) Uterus: Yes: Fundus Firm, Fundus below umbilicus Incision: Yes: Dressing dry and intact Abdomen/GI: Yes: Abdomen soft, Tender (appropriate post surgical tenderness), Tolerating PO (clears). No: Passing flatus Perineum: Yes: Intact Activity: Ambulating - Labs Labs: CBC WBC 9.0 K/mm3 (4.0-10.0) D 02/26/17 07:45 RBC 3.74 M/mm3 (3.60-5.2) 02/26/17 07:45 Hgb 10.8 GM/dL (10.7-15.3) 02/26/17 07:45 Hct 32.9 % (32.4-45.2) 02/26/17 07:45 MCV 87.8 fl (80-96) 02/26/17 07:45 MCH 28.8 pg (25.7-33.7) 02/26/17 07:45 MCHC 32.8 g/dl (32.0-36.0) 02/26/17 07:45 RDW 14.1 % (11.6-15.6) 02/26/17 07:45 Plt Count 179 K/MM3 (134-434) 02/26/17 07:45 MPV 10.0 fl (7.5-11.1) 02/26/17 07:45 Neutrophils % 75.7 % (42.8-82.8) D 02/26/17 07:45 Lymphocytes % 17.2 % (8-40) D 02/26/17 07:45 Monocytes % 6.3 % (3.8-10.2) 02/26/17 07:45 Eosinophils % 0.6 % (0-4.5) D 02/26/17 07:45 Basophils % 0.2 % (0-2.0) 02/26/17 07:45 Problem List - Problems (1) History of delivery Code(s): Z98.891 - HISTORY OF UTERINE SCAR FROM PREVIOUS SURGERY (2) Obesity affecting in third trimester Code(s): O99.213 - OBESITY COMPLICATING , THIRD TRIMESTER Assessment/Plan 26 y/o POD#1 s/p repeat low transverse deliveryion - AFVSS - Hgb 10.8, stable - encourage ambulation - advance diet as tolerated - routine post op/post care
--- NOTE | 2017-02-26 12:09 | OP ---
DATE OF OPERATION: 02/25/2017 PREOPERATIVE DIAGNOSIS: Prior section, declined trial of labor after section. PROCEDURE: Repeat low transverse section. SURGEON: Shiela Vanessa DO FIXED INTEREST DEALER: FERN Baron ESTIMATED BLOOD LOSS: 700 mL COMPLICATIONS: None. SPECIMENS: Included placenta, cord blood. COUNTS: Sponge, needle, and instrument counts correct. DISPOSITION: Stable to PACU. BRIEF HISTORY AND DESCRIPTION OF PROCEDURE: Patient is a 26-year-old G2, P 1-0-0-1 with single intrauterine at 39 weeks, who arrived to Labor and Delivery on February 25, 2017, for a scheduled repeat section. The patient had an uncomplicated , prior delivery x1. Patient was admitted to [facility] on February 25, 2017. Consents for the procedure were signed. She was then taken back to the operating room where she was given spinal anesthesia by Dr. De Leon and placed in the dorsal supine position. A Pina catheter was placed under sterile conditions. The patient was then prepped and draped in the usual sterile fashion, and a hard timeout was performed. A Pfannenstiel skin incision was created in the skin using the same incision as her prior scar. The incision was carried to the underlying layer of rectus fascia with the Bovie, and the fascia was incised on either side of midline with the Bovie. The fascial incision was carried in a superolateral direction with the Bovie, and the fascia was then tented upward and dissected off the underlying layer of rectus muscle. The rectus muscle was then retracted laterally. The peritoneum was entered bluntly. There were filmy adhesions from the bladder to the anterior uterus, which were taken down sharply, without difficulty. The bladder blade was then inserted. Next, a transverse incision was created in the lower uterine segment with a scalpel, and this incision was carried in the superolateral direction bluntly. The was then delivered from the left occiput anterior position without difficulty. The anterior shoulder, which was the right shoulder, delivered with ease along with the remainder of the . The cord was clamped twice and cut in between after delayed cord clamping. The was then taken over to the warmer to be assessed by the neonatology staff. The placenta was then delivered intact and manually extracted. The uterus was exteriorized from the abdomen, inspected and cleared of all amniotic membrane and debris with a dry lap sponge. The hysterotomy was reapproximated in 2-layer closure, first using 1 Vicryl in a running locked fashion, second layer with 0 Biosyn in a running locked fashion. Excellent hemostasis was achieved. The posterior cul-de-sac was suctioned. The uterus was placed back into the abdomen. Again, the hysterotomy was noted to be hemostatic. Bilateral gutters were inspected and cleared of all blood clot and debris. The peritoneum was then reapproximated using 2-0 chromic in a running fashion. The musculature was reapproximated in 2 interrupted sutures using 0 Biosyn suture. The fascia was reapproximated using 1 Vicryl in a running fashion. The subcutaneous tissue was irrigated and reapproximated in interrupted sutures using 1 Vicryl, and the skin was reapproximated with aiden as per patient request. Bandage was then applied. The patient tolerated the procedure well and recovering in stable condition in the postprocedure care unit on the labor and delivery floor. Sponge, needle, and instrument counts were reported to be correct. SHIELA VANESSA DO /[id number]
[2017-02-26] MEDS: BISACODYL 10 MG SUPP.RECT RC PRN (13:21)
[2017-02-27] MEDS: IBUPROFEN 600 MG TABLET (FP) PO PRN ×5 (01:11→21:46)
[2017-02-27] MEDS: SIMETHICONE 80 MG TAB.CHEW (FP) PO PRN ×5 (01:11→21:50)
[2017-02-27] MEDS: oxyCODONE HCL 5 MG TABLET PO PRN (01:12)
[2017-02-27] MEDS: ACETAMINOPHEN 325 MG TABLET (FP) PO PRN ×4 (08:49→21:47)
--- NOTE | 2017-02-27 09:36 | PN ---
Post Progress Note - Subjective Subjective: Pt doing well overall. Having pain with urination. Seeing some bleeding when urinating, possibly vagina vs. urinary? Denies CP/SOB/F/C/WILL. Having some intermittent gas pains but passing flatus. Ambulating without difficulty. Type of Delivery: Repeat C/S Vital Signs: Vital Signs Temperature 98.5 F 02/27/17 09:20 Pulse Rate 92 H 02/27/17 09:20 Respiratory Rate 20 02/27/17 09:20 Blood Pressure 129/71 02/27/17 09:20 O2 Sat by Pulse Oximetry (%) Uterus: Yes: Fundus Firm, Fundus below umbilicus Incision: Yes: [place] intact Abdomen/GI: Yes: Abdomen soft, Abdominal Distention (mild), Passing flatus. No : Tender Lochia, amount: Small Extremities: Yes: Calves non-tender. No: Edema Perineum: Yes: Intact Activity: Ambulating - Labs Labs: CBC WBC 9.0 K/mm3 (4.0-10.0) D 02/26/17 07:45 RBC 3.74 M/mm3 (3.60-5.2) 02/26/17 07:45 Hgb 10.8 GM/dL (10.7-15.3) 02/26/17 07:45 Hct 32.9 % (32.4-45.2) 02/26/17 07:45 MCV 87.8 fl (80-96) 02/26/17 07:45 MCH 28.8 pg (25.7-33.7) 02/26/17 07:45 MCHC 32.8 g/dl (32.0-36.0) 02/26/17 07:45 RDW 14.1 % (11.6-15.6) 02/26/17 07:45 Plt Count 179 K/MM3 (134-434) 02/26/17 07:45 MPV 10.0 fl (7.5-11.1) 02/26/17 07:45 Neutrophils % 75.7 % (42.8-82.8) D 02/26/17 07:45 Lymphocytes % 17.2 % (8-40) D 02/26/17 07:45 Monocytes % 6.3 % (3.8-10.2) 02/26/17 07:45 Eosinophils % 0.6 % (0-4.5) D 02/26/17 07:45 Basophils % 0.2 % (0-2.0) 02/26/17 07:45 Problem List - Problems (1) History of delivery Code(s): Z98.891 - HISTORY OF UTERINE SCAR FROM PREVIOUS SURGERY (2) Obesity affecting in third trimester Code(s): O99.213 - OBESITY COMPLICATING , THIRD TRIMESTER Assessment/Plan 26 y/o POD#2 s/p repeat low transverse deliveryion - AFVSS - Hgb 10.8, stable - encourage ambulation - advance diet as tolerated - dysuria and ? hematuria - will send urine culture - pt encouraged to disclose if she is unable to void or if pain with voiding increases - routine post op/post care
[2017-02-27] MEDS: FERROUS SO4 325 MG TABLET (FP) PO SCH ×2 (11:15→21:45)
[2017-02-27] MEDS: BISACODYL 10 MG SUPP.RECT RC PRN (21:53)
[2017-02-28] MEDS: SIMETHICONE 80 MG TAB.CHEW (FP) PO PRN ×2 (01:43→07:18)
[2017-02-28] MEDS: ACETAMINOPHEN 325 MG TABLET (FP) PO PRN ×2 (01:43→07:17)
[2017-02-28] MEDS: IBUPROFEN 600 MG TABLET (FP) PO PRN ×2 (01:44→07:16)
--- NOTE | 2017-02-28 06:38 | DS ---
Physical Exam-[employer] OPER[employer] Vital Signs: Vital Signs Temperature 98.0 F 02/27/17 21:12 Pulse Rate 84 02/27/17 21:12 Respiratory Rate 20 02/27/17 21:12 Blood Pressure 132/54 02/27/17 21:12 O2 Sat by Pulse Oximetry (%) Constitutional: Yes: Well Nourished, No Distress, Calm Eyes: Yes: Conjunctiva Clear, EOM Intact HENT: Yes: Atraumatic, Normocephalic Neck: Yes: Trachea Midline Cardiovascular: Yes: Regular Rate and Rhythm Respiratory: Yes: Regular, CTA Bilaterally Gastrointestinal: Yes: Normal Bowel Sounds, Soft. No: Distention, Vomiting Renal/: Yes: Vaginal Bleeding. No: Pina Present, Incontinence, Oliguria, Polyuria External Genitalia: Yes: Normal Wound/Incision: Yes: Clean/Dry, Well Approximated, [place] Intact Psychiatric: Yes: Alert, Oriented Labs: CBC, BMP 02/26/17 07:45 Delivery - Delivery Section: Repeat, Low Flap Transverse Type of Anesthesia: Spinal Episiotomy/Laceration: None EBL (cc): 700 Delivery, Single - Stages of Labor Date of Delivery: 02/25/17 Time of Delivery: 10:28 Time Placenta Delivered: 10:29 Placenta: Yes: Manual Removal - Condition of Drainman/Collection Support Specialist Present: Yes Name: Carolyn Haney Infant Gender: Female Weight: 7 lb 14 oz Position: Left, OA Total Hours ROM (Hrs/Mins): 1M - 1 Minute Total Score: 8 5 Minutes Total Score: 9 - Feeding Plan Initial Plan: Elected not to breastfeed exclusively throughout hospitalization Discharge Summary Reason For Visit: Current Active Problems History of delivery (Acute) Obesity (BMI 35.0-39.9 without comorbidity) (Acute) Obesity affecting in third trimester (Acute) Procedures: Principal: Scheduled repeat c section Hospital Course: Patient admitted on 02/25/17 for scheduled repeat c section. The patient underwent an uncomplicated procedure (see dictated procedure/op note). By post op day 3, the patient was voiding, passing flatus, tolerating diet and ambulating and was stable. Pt was discharged home on POD#3. Condition: Good - Instructions Diet, Activity, Other Instructions: Physical activity Resume your normal everyday activity as tolerated but no heavy lifting or strenuous exercise until seen by your surgeon. You may walk unlimited amounts and you may climb stairs. You may resume driving the car when you feel safe and comfortable behind the wheel. No sexual activity as instructed for 6 weeks. Wound care Your aiden will come out in 1 week in the office. Please call the office to make an appointment for removal. Diet There are no dietary restrictions. Eat healthy, high-fiber foods. Drink 6 to 8 glasses of liquid each day. This will assist in keeping your bowels regular. Pain management You may take Tylenol Ibuprofen (for example, Motrin, Advil etc.) from mild pain. If any prescription medication is ordered should be taken as prescribed for moderate to severe pain. Call MD for any of the following: Severe pain not relieved by medication Fever of 101 or higher Excessive bleeding or drainage on dressing Inability to urinate Referrals: Shiela Vanessa DO [Staff Physician] - 1 Week (03/04 for staple removal) Disposition: HOME - Home Medications Comprehensive Discharge Medication List: Ambulatory Orders Vit/Iron Fumarate/FA [ Tablet] 1 each PO DAILY MDD 1 07/12/16 Tablet 02/25/17 Ibuprofen [Motrin -] 600 mg PO QID PRN #28 tablet 02/28/17 Oxycodone HCl/Acetaminophen [Percocet 5-325 mg Tablet -] 1 tab PO Q4H #30 tablet MDD 6 02/28/17
[2017-02-28 07:25] LABS: BASOPHIL 0.4 % (0-2.0); EOSINOPHIL 1.1 % (0-4.5); MCH 28.8 pg (25.7-33.7); MCHC 32.9 g/dl (32.0-36.0); MEAN CELL VOLUME 87.7 fl (80-96); MEAN PLT VOLUME 9.7 fl (7.5-11.1); PLATELET COUNT 181 K/MM3 (134-434); RDW 14.7 % (11.6-15.6); WHITE BLOOD COUNT 5.7 K/mm3 (4.0-10.0)
[2017-02-28 09:30] VITALS: BP 128/79; PULSE 67; TEMP 98.9
[2017-02-28] MEDS: FERROUS SO4 325 MG TABLET (FP) PO SCH (09:37)
[2017-02-28] MEDS ORDERED: PRENATAL VITAMINS W/ FOLIC ACID TABLET (FP) PO SCH (10:00)
--- NOTE | 2017-03-02 15:24 | PATH ---
Surgical Pathology Report Patient Name: BONNIE SAXENA [facility]. Rec. #: [id number] /Age/Gender: 1990 (Age: 26) / F Account: [id number] Location: [facility] ATTENDANT Taken: 02/25/2017 Received: 02/26/2017 Reported: 03/02/2017 Physicians: Shiela Vanessa M.D. Specimen(s) Received PLACENTA Clinical History term for repeat Final Diagnosis PLACENTA, DELIVERY: FOCALLY DISRUPTED THIRD TRIMESTER PLACENTA WITH THREE VESSEL UMBILICAL CORD AND UNREMARKABLE PLACENTAL MEMBRANES. Electronically Signed Handy Akbar M.D. Gross Description The specimen is received fresh labeled placenta and is a 501 gram, 16.5 x 15.5 x 2.2 cm. placenta with attached membranes and umbilical cord. The attached membranes are hand, translucent focal opacities and insert marginally. The umbilical cord measures 27 cm. in length and averages 1.3 cm. in diameter. The cord inserts eccentrically, 5.5 cm. to the nearest margin. No true knots or strictures are identified. Cut surface of the umbilical cord reveals 3 vessels. The surface is miguel-blue with minimal fibrin deposition and appropriate caliber vessels. The maternal surface is red-brown with focal defects. Sectioning reveals red-brown, spongy parenchyma. No lesions are identified. [employer] sections are submitted in three cassettes as follows: 1- membrane rolls and umbilical cord; 2-3- full thickness sections of placenta. /02/27/2017 [facility]02/27/2017
== END 2017-02-28 10:05 | disposition home or self-care (01) | DRG 540 ==
LOC: JLDR 08:12 → J3W 12:24
PROVIDERS: ADMIT Obstetrics & Gynecology; ATTEND Obstetrics & Gynecology
PROC: 10D00Z1 Extraction of Products of Conception, Low, Open Approach (ICD-10-PCS; principal; 2017-02-25)
DX: O34.211 Maternal care for low transverse scar from previous cesarean delivery (principal); O99.214 Obesity complicating childbirth; E66.8 Other obesity; Z68.35 Body mass index [BMI] 35.0-35.9, adult; Z3A.39 39 weeks gestation of pregnancy; Z37.0 Single live birth
CPT/HCPCS: 36415; 85025; 87086; 87186; 88307-TC; 90686; 90715; G0008

== ENCOUNTER 2017-03-01 04:51 | Emergency (ER) | payer OTHER ==
[2017-03-01 05:02] VITALS: BMI 34.0
--- NOTE | 2017-03-01 05:12 | PDOC ---
History of Present Illness - General Chief Complaint: Urinary Problem Stated Complaint: PAINFUL URINATION Time Seen by Provider: 03/01/17 04:58 History Source: Patient Exam Limitations: No Limitations - History of Present Illness Initial Comments: 03/01/17 05:12 The patient is a 26F who is s/p c/s 3 days ago, discharged from the hospital today BIBA for abdominal pain and shortness of breath. The patient states that she is having sharp pain in her abdomen, hypogastric region with painful urination. The patient also states that she gets short of breath when she is trying to relax and lay down. She denies CP, diaphoresis, numbness, tingling, weakness. She denies vaginal cramping and bleeding. Past History - Past Medical History Allergies/Adverse Reactions: Allergies Allergy/AdvReac Type Severity Reaction Status Date / Time No Known Allergies Allergy Verified 03/01/17 04:57 Home Medications: Ambulatory Orders Ibuprofen [Motrin -] 600 mg PO QID PRN #28 tablet 02/28/17 Oxycodone HCl/Acetaminophen [Percocet 5-325 mg Tablet -] 1 tab PO Q4H #30 tablet MDD 6 02/28/17 Asthma: No Cancer: No Cardiac Disorders: No Diabetes: No GI Disorders: Yes (umbalical hernia) HTN: No Seizures: No Thyroid Disease: No - Reproductive History (#): 2 Para: 1 Cervical CA: No Dysfunctional Uterine Bleeding: No Ectopic : No Endometrial CA: No Polycystic Ovaries: No Therapeutic (s) & number: No Tubal Ligation: No Spontaneous : 0 - Immunization History Immunization Up to Date: Yes - Suicide/Smoking/Psychosocial Hx Smoking Status: No Smoking History: Never smoked Have you smoked in the past 12 months: No Number of Cigarettes Smoked Daily: 0 Information on smoking cessation initiated: No Hx Alcohol Use: No Drug/Substance Use Hx: No Substance Use Type: None Hx Substance Use Treatment: No Review of Systems - Review of Systems Able to Perform ROS?: Yes Is the patient limited Bulgarian proficient: No Constitutional: No: Chills, Fever Respiratory: Yes: Orthopnea, Shortness of Breath, SOB at Rest. No: Cough Cardiac (ROS): No: Chest Pain, Edema, Chest Tightness ABD/GI: No: Constipated, Diarrhea, Nausea, Vomiting : Yes: Burning, Dysuria, Pain. No: Discharge, Frequency Musculoskeletal: No: Back Pain, Neck Pain Integumentary: No: Bruising, Flushing, Lesions Neurological: No: Headache, Numbness, Tingling, Weakness *Physical Exam - Vital Signs Last Vital Signs Temp Pulse Resp BP Pulse Ox 97.4 F L 78 16 126/94 100 03/01/17 04:57 03/01/17 04:57 03/01/17 04:57 03/01/17 04:57 03/01/17 04:57 - Physical Exam General Appearance: Yes: Nourished, Appropriately Dressed, Obese HEENT: positive: Normal Voice, Hearing Grossly Normal Respiratory/Chest: positive: Lungs Clear, Normal Breath Sounds. negative: Chest Tender, Respiratory Distress Cardiovascular: positive: Regular Rhythm, Regular Rate, S1, S2. negative: Diastolic Murmur, Systolic Murmur Gastrointestinal/Abdominal: positive: Tender (hypogastric and suprapubic), Flat , Soft, Other (c/s scar healing well). negative: Rebound, Tenderness, Hernia Musculoskeletal: negative: CVA Tenderness, CVA Tenderness (R), CVA Tenderness (L ) Extremity: negative: Coldness, Cyanosis, Swelling, Calf Tenderness Integumentary: positive: Dry, Warm. negative: Swelling Neurologic: positive: Fully Oriented, Alert, Normal Mood/Affect ED Treatment Course - LABORATORY CBC & Chemistry Diagram: 03/01/17 05:10 03/01/17 05:10 Medical Decision Making - Medical Decision Making 03/01/17 05:29 The patient is a 26F s/p c/s 3 days ago and was d/c out of the hospital today complaining of dysuria and SOB at rest. PE, UTI, pericarditis, and wound dehiscence are on my differential. I will reassess after labs and imaging return. 03/01/17 06:01 Patient refuses CXR. Desires AMA form then refuses to sign. CTA is ordered to r/ o PE. 03/01/17 07:09 Patient signed out to day team. *DC/Admit/Observation/Transfer Diagnosis at time of Disposition: pain - Discharge Dispostion Disposition: HOME Condition at time of disposition: Improved - Referrals Referrals: Shiela Falcon DO [Staff Physician] - - Patient Instructions Printed Discharge Instructions: DI for Additional Instructions: you should follow up with Dr Falcon on thursday ( tomorrow) call to confirm in am. elevate legs to help with swelling. you can take ibuprofen every 8 hours as needed for pain. you will need to supplement feeding for 3 days as you were given iv contrast with your ct scan. your ct scan is negative. all blood work is normal. you have mild blood in your urine which is expected after your delivery. for persistant urinary pain, fever or any signs of infection return or follow up with your primary doctor.
[2017-03-01 05:20] LABS: BASOPHIL 0.8 % (0-2.0); EOSINOPHIL 2.2 % (0-4.5); MEAN CELL VOLUME 87.9 fl (80-96); MEAN PLT VOLUME 9.8 fl (7.5-11.1); NEUTROPHILS 48.9 % (42.8-82.8); PLATELET COUNT 211 K/MM3 (134-434); RDW 14.2 % (11.6-15.6); WHITE BLOOD COUNT 5.5 K/mm3 (4.0-10.0)
[2017-03-01 05:29] LABS: URINE APPEARANCE CLEAR; URINE BILIRUBIN NEGATIVE (NEGATIVE); URINE BLOOD 2+ (NEGATIVE); URINE COLOR STRAW; URINE GLUCOSE (UA) NEGATIVE (NEGATIVE); URINE KETONE NEGATIVE (NEGATIVE); URINE LEUK ESTERASE TRACE (NEGATIVE); URINE NITRITE NEGATIVE (NEGATIVE); URINE PROTEIN NEGATIVE (NEGATIVE); URINE UROBILINOGEN NEGATIVE mg/dL (0.2-1.0)
[2017-03-01 05:32] LABS: URINE BACTERIA RARE /hpf (NONE SEEN); URINE HYALINE CAST 1 /lpf; URINE RBC 16 /hpf (0-3); URINE WBC 4 /hpf (3-5)
[2017-03-01 05:48] LABS: ALBUMIN 2.2 g/dl (3.4-5.0); ANION GAP 8 (8-16); BILIRUBIN,TOTAL 0.3 mg/dL (0.2-1.0); CALCIUM 8.2 mg/dL (8.5-10.1); CO2 26 mmol/L (21-32); CREATININE 0.5 mg/dL (0.55-1.02); GLUCOSE,RANDOM 82 mg/dL (74-106); SGOT/AST 14 U/L (15-37); SGPT/ALT 17 U/L (12-78); TOT PROT 5.9 g/dl (6.4-8.2)
[2017-03-01 05:50] LABS: ALK PHOS 101 U/L (45-117)
--- NOTE | 2017-03-01 06:53 | PDOC ---
Attending Attestation - Resident Resident Name: Gonsalo Magdaleno - HPI HPI: 03/01/17 06:49 Pt comes with dysuria and inability to sleep and SOB. Pt has borderline BP of 132/91 and 135/91 in bilateral arms.Pt had HTN woth her first . Pt just had a c section 4 days ago. - Physicial Exam PE: 03/01/17 06:50 Pt has normal heart and lung sounds. Pt is afebrile. No abd tenderness; just soreness at the side, - Medical Decision Making 03/01/17 06:51 Pt has a normal EKG and normal labs, normal UA. D-dimer is 500s 03/01/17 06:52 CTA lungs pending. SHe will be signed out to the day ER docs.
[2017-03-01 08:31] VITALS: BP 137/73; PULSE 70; TEMP 98.3
--- NOTE | 2017-03-01 08:32 | PDOC ---
*Physical Exam - Vital Signs Pt signed out to me by excellent Dr. Gonsalo Magdaleno. 26 YOF who is POD #3 from [facility] discharged from hospital yesterday, presented with SOB and chest pain. D- dimer was >500 and chest CTA ordered, pending results. Last Vital Signs Temp Pulse Resp BP Pulse Ox 97.4 F L 78 16 126/94 100 03/01/17 04:57 03/01/17 04:57 03/01/17 04:57 03/01/17 04:57 03/01/17 04:57 - Physical Exam General Appearance: Yes: Nourished, Obese. No: Apparent Distress HEENT: positive: EOMI, Normal Voice, Hearing Grossly Normal. negative: Scleral Icterus (R), Scleral Icterus (L), Nasal Congestion Neck: positive: Trachea midline, Supple. negative: Tender, Rigid Respiratory/Chest: positive: Lungs Clear, Normal Breath Sounds. negative: Respiratory Distress, Crackles, Rhonchi, Stridor, Wheezing Cardiovascular: positive: Regular Rhythm, Regular Rate. negative: Murmur Gastrointestinal/Abdominal: positive: Normal Bowel Sounds, Tender (minimal suprapubic), Soft, Other ([facility] scar is CDI). negative: Organomegaly, Pulsatile Mass, Guarding Musculoskeletal: positive: Normal Inspection, Other (minimal BLE edema, minimal left calf tenderness). negative: Decreased Range of Motion, Vertebral Tenderness Extremity: positive: Normal Capillary Refill, Normal Inspection, Normal Range of Motion. negative: Tender, Cyanosis Integumentary: positive: Normal Color, Dry, Warm. negative: Erythema, Rash, Bruising Neurologic: positive: woven paper hat mender II-XII NML intact (grossly), Fully Oriented, Alert, Normal Mood/Affect, Normal Response, Motor Strength 5/5 Heart Score/ECG Review - History History: Moderately suspicious - Electrocardiogram EKG: Normal - Age Age: </= 45 - Risk Factors Risk Factors Heart Score: Yes Hx Obesity Based on the list above the patient has:: 1-2 risk factors #1 NSR with sinus arrhythmia, rate of 60, nothing acute ED Treatment Course - LABORATORY CBC & Chemistry Diagram: 03/01/17 05:10 03/01/17 05:10 - ADDITIONAL ORDERS Additional order review: Laboratory Results 03/01/17 03/01/17 03/01/17 05:20 05:10 05:10 D-Dimer Sodium 139 Potassium 3.8 Chloride 105 Carbon Dioxide 26 Anion Gap 8 BUN 8 D Creatinine 0.5 L Creat Clearance w eGFR > 60 Random Glucose 82 Calcium 8.2 L Total Bilirubin 0.3 D AST 14 L ALT 17 D Alkaline Phosphatase 101 D B-Natriuretic Peptide 107.83 Total Protein 5.9 L D Albumin 2.2 L D Beta HCG, Quant 690.3 Urine Color Straw Urine Appearance Clear Urine pH 6.0 Urine Protein Negative Urine Glucose (UA) Negative Urine Ketones Negative Urine Blood 2+ H Urine Nitrite Negative Urine Bilirubin Negative Urine Urobilinogen Negative Urine RBC 16 Urine WBC 4 Ur Epithelial Cells Few Urine Bacteria Rare Hyaline Casts 1 03/01/17 05:10 D-Dimer 585 H Sodium Potassium Chloride Carbon Dioxide Anion Gap BUN Creatinine Creat Clearance w eGFR Random Glucose Calcium Total Bilirubin AST ALT Alkaline Phosphatase B-Natriuretic Peptide Total Protein Albumin Beta HCG, Quant Urine Color Urine Appearance Urine pH Urine Protein Urine Glucose (UA) Urine Ketones Urine Blood Urine Nitrite Urine Bilirubin Urine Urobilinogen Urine RBC Urine WBC Ur Epithelial Cells Urine Bacteria Hyaline Casts 03/01/17 05:10 RBC 3.29 L MCV 87.9 MCHC 33.0 RDW 14.2 MPV 9.8 Neutrophils % 48.9 Lymphocytes % 39.9 D Monocytes % 8.2 Eosinophils % 2.2 D Basophils % 0.8 Medical Decision Making - Medical Decision Making Chest CTA is negative for PE and any other acute cardiopulmonary processes. Repeat BP in the ED is 137/73; concern for post- preeclampsia. Other possibilities on DDX are cardiomyopathy, HELLP. HELLP less likely given negative protein on UA, normal PLT, and essentially normal LFTs. But the patient does have hypoalbuminemia and leg edema bilaterally. LD total is added on to labs, results wnl. Chest CTA results with nothing acute, small pericardial effusion likely functional. Bedside echo shows grossly normal RV function, no other abnormalities. Page is sent to Dr. Gamez (Pt's OB-WEB COORDINATOR) to discuss Pt's case. Dr. Boles speaks with Pt's OB clinic who are comfortable with plan for DC home and close f/u. Pt is appropriate for DC home and close OP follow up with her OC-WEB COORDINATOR and PCP. Return precautions are discussed. Repeat abdominal exam and heart/lung/chest exam are unremarkable. She is discharged home. *DC/Admit/Observation/Transfer Diagnosis at time of Disposition: pain - Discharge Dispostion Disposition: HOME Condition at time of disposition: Improved - Referrals Referrals: Shiela Vanessa DO [Staff Physician] - - Patient Instructions Printed Discharge Instructions: DI for Additional Instructions: you should follow up with Dr Vanessa on thursday ( tomorrow) call to confirm in am. elevate legs to help with swelling. you can take ibuprofen every 8 hours as needed for pain. you will need to supplement feeding for 3 days as you were given iv contrast with your ct scan. your ct scan is negative. all blood work is normal. you have mild blood in your urine which is expected after your delivery. for persistant urinary pain, fever or any signs of infection return or follow up with your primary doctor.
--- NOTE | 2017-03-01 08:33 | EKG ---
Test Reason : Blood Pressure : / mmHG Vent. Rate : 060 BPM Atrial Rate : 060 BPM P-R Int : 178 ms QRS Dur : 082 ms QT Int : 412 ms P-R-T Axes : 036 065 038 degrees QTc Int : 412 ms NORMAL SINUS RHYTHM WITH SINUS ARRHYTHMIA NORMAL ECG WHEN COMPARED WITH ECG OF 12-JUL-2016 18:47, NO SIGNIFICANT CHANGE WAS FOUND Confirmed by MD MARIBEL, DARSHANA ([id number]) on 03/01/2017 8:33:20 AM Referred By: Confirmed By:DARSHANA LÓPEZ MD
--- NOTE | 2017-03-01 09:11 | PDOC ---
*Physical Exam - Vital Signs Last Vital Signs Temp Pulse Resp BP Pulse Ox 98.3 F 70 20 137/73 100 03/01/17 08:28 03/01/17 08:28 03/01/17 08:28 03/01/17 08:28 03/01/17 08:28 - Physical Exam General Appearance: Yes: Nourished Neck: positive: Trachea midline Respiratory/Chest: positive: Lungs Clear, Normal Breath Sounds Cardiovascular: positive: Regular Rhythm, Regular Rate, S1, S2, Edema (non pitting edema) Gastrointestinal/Abdominal: positive: Normal Bowel Sounds, Tender ( appropriately tendern near scar) Extremity: positive: Normal Capillary Refill, Normal Inspection, Other (non pitting edema) Integumentary: positive: Normal Color, Dry, Warm Neurologic: positive: Fully Oriented, Alert, Normal Mood/Affect ED Treatment Course - LABORATORY CBC & Chemistry Diagram: 03/01/17 05:10 03/01/17 05:10 - ADDITIONAL ORDERS Additional order review: Laboratory Results 03/01/17 03/01/17 03/01/17 05:20 05:10 05:10 D-Dimer Sodium 139 Potassium 3.8 Chloride 105 Carbon Dioxide 26 Anion Gap 8 BUN 8 D Creatinine 0.5 L Creat Clearance w eGFR > 60 Random Glucose 82 Calcium 8.2 L Total Bilirubin 0.3 D AST 14 L ALT 17 D Alkaline Phosphatase 101 D B-Natriuretic Peptide 107.83 Total Protein 5.9 L D Albumin 2.2 L D Beta HCG, Quant 690.3 Urine Color Straw Urine Appearance Clear Urine pH 6.0 Urine Protein Negative Urine Glucose (UA) Negative Urine Ketones Negative Urine Blood 2+ H Urine Nitrite Negative Urine Bilirubin Negative Urine Urobilinogen Negative Urine RBC 16 Urine WBC 4 Ur Epithelial Cells Few Urine Bacteria Rare Hyaline Casts 1 03/01/17 05:10 D-Dimer 585 H Sodium Potassium Chloride Carbon Dioxide Anion Gap BUN Creatinine Creat Clearance w eGFR Random Glucose Calcium Total Bilirubin AST ALT Alkaline Phosphatase B-Natriuretic Peptide Total Protein Albumin Beta HCG, Quant Urine Color Urine Appearance Urine pH Urine Protein Urine Glucose (UA) Urine Ketones Urine Blood Urine Nitrite Urine Bilirubin Urine Urobilinogen Urine RBC Urine WBC Ur Epithelial Cells Urine Bacteria Hyaline Casts 03/01/17 05:10 RBC 3.29 L MCV 87.9 MCHC 33.0 RDW 14.2 MPV 9.8 Neutrophils % 48.9 Lymphocytes % 39.9 D Monocytes % 8.2 Eosinophils % 2.2 D Basophils % 0.8 Medical Decision Making - Medical Decision Making 03/01/17 09:06 26 yo 2 days post from c section , seen overnight by DR Ferrell for sob , abd pain, and dysuria. assumed care pt at 7 am. pt was awaiting ct angio r/o pe. due to mildly elevated d dimer. pt initial bp 126/94, now 133/ 90, c/o mild leg swelling and sob. ct angio normal cardiac borders, no edema. no infection. no pe. labs unremarkable. except noted hematuria and mild protein in urin. lft normal. will perform bedside echo r/o cardiomyopathy. d/w covering OB dr. Dunbar, covering for dr. vanessa. unconcerned for preeclepmsia as bp does not meet cut off. states post leg swelling is expected. ok to dc, will see pt on thursday. d/w patient will dc home. 03/01/17 13:49 PROCEDURE NOTE: focused ED ultrasound TTE indication sob, peripartum finding: heart scanned in three views with curvilinear probe ( parasternal long and short, subxiphoid, and apical views) good contractility noted. no pericardial effusion. no rv dilation or strain. impression: normal TTE, good contractility. lew, [id number] 03/01/17 13:50 *DC/Admit/Observation/Transfer Diagnosis at time of Disposition: pain - Discharge Dispostion Disposition: HOME Condition at time of disposition: Improved - Referrals Referrals: Shiela Vanessa DO [Staff Physician] - - Patient Instructions Printed Discharge Instructions: DI for Additional Instructions: you should follow up with Dr Vanessa on thursday ( tomorrow) call to confirm in am. elevate legs to help with swelling. you can take ibuprofen every 8 hours as needed for pain. you will need to supplement feeding for 3 days as you were given iv contrast with your ct scan. your ct scan is negative. all blood work is normal. you have mild blood in your urine which is expected after your delivery. for persistant urinary pain, fever or any signs of infection return or follow up with your primary doctor.
[2017-03-01] MEDS ORDERED: ACETAMINOPHEN 325 MG TABLET (FP) PO ONE (09:33)
[2017-03-01] MEDS ORDERED: ACETAMINOPHEN 325 MG TABLET (FP) ONE (09:43)
== END 2017-03-01 10:01 | disposition home or self-care (01) ==
LOC: JER 04:51
DX: O90.89 Other complications of the puerperium, not elsewhere classified (principal); G89.18 Other acute postprocedural pain
CPT/HCPCS: 36415; 71275-TC; 80053; 81003; 81015; 83615; 83880; 84702; 85025; 85379; 93005; 93010; 99284-25

== ENCOUNTER 2017-12-11 16:54 | Emergency (ER) | payer OTHER ==
[2017-12-11 17:02] VITALS: TEMP 98.5; BMI 30.5
--- NOTE | 2017-12-11 17:02 | PDOC ---
Rapid Medical Evaluation Time Seen by Provider: 12/11/17 16:58 Medical Evaluation: Allergies Allergy/AdvReac Type Severity Reaction Status Date / Time No Known Allergies Allergy Verified 03/01/17 04:57 12/11/17 16:58 I have performed a brief in-person evaluation of this patient. The patient presents with a chief complaint of: R chest/neck pressure w/ ?sob and nausea x 4 days. Denies any pmhx Pertinent physical exam findings:Stable w/ unremarkable exam I have ordered the following:ua/preg The patient will proceed to the ED for further evaluation. Discharge Disposition - Diagnosis Chest pressure - Referrals - Patient Instructions - Post Discharge Activity
--- NOTE | 2017-12-11 17:39 | PDOC ---
History of Present Illness - General Chief Complaint: Shortness of Breath Stated Complaint: S.O.B Time Seen by Provider: 12/11/17 16:58 - History of Present Illness Initial Comments: 12/11/17 17:36 27 yo F with h/o GERD who p/w R sided throat discomfort. Patient reports 3 days of globus sensation in R sided throat with pressure radiating to retrosternal region. "Something stuck in throat." Not able to clear with PO fluid intake. Denies odynophagia, + R sided ear pressure. Denies otorrhea, tinnitus, ear pain. Recent recovered viral type illness 2 days ago, with asx. myalgias, chills , nausea without vomiting. Patient denies N/V, palpitations, wheezing, cough, leg swelling/pain, F,C, CP, SOB, urinary complaints, abdominal pain, diarrhea, constipation, BPR, lightheadedness, weakness, sensory changes. PMHx: as noted above. Denies h/o endoscopy or instrumentation. ROS: as noted SHx: Denies Etoh, IVDA, tobacco use. Allergies: NKDA Past History - Past Medical History Allergies/Adverse Reactions: Allergies Allergy/AdvReac Type Severity Reaction Status Date / Time No Known Allergies Allergy Verified 12/11/17 17:02 Home Medications: Ambulatory Orders Ibuprofen [Motrin -] 600 mg PO QID PRN #28 tablet 02/28/17 Asthma: No Cancer: No Cardiac Disorders: No COPD: No Diabetes: No GI Disorders: Yes (umbalical hernia) HTN: No Seizures: No Thyroid Disease: No - Reproductive History (#): 2 Para: 1 Cervical CA: No Dysfunctional Uterine Bleeding: No Ectopic : No Endometrial CA: No Polycystic Ovaries: No Therapeutic (s) & number: No Tubal Ligation: No Spontaneous : 0 - Immunization History Immunization Up to Date: Yes - Suicide/Smoking/Psychosocial Hx Smoking Status: No Smoking History: Never smoked Have you smoked in the past 12 months: Yes Number of Cigarettes Smoked Daily: 0 Information on smoking cessation initiated: No Hx Alcohol Use: No Drug/Substance Use Hx: No Substance Use Type: Marijuana Hx Substance Use Treatment: No Review of Systems - Review of Systems Comments:: 12/11/17 17:36 GENERAL/CONSTITUTIONAL: No fever or chills. No weakness. HEAD, EYES, EARS, NOSE AND THROAT: No change in vision. No ear pain or discharge. No sore throat. CARDIOVASCULAR: No chest pain or shortness of breath RESPIRATORY: No cough, wheezing, or hemoptysis. GASTROINTESTINAL: No nausea, vomiting, diarrhea or constipation. GENITOURINARY: No dysuria, frequency, or change in urination. MUSCULOSKELETAL: No joint or muscle swelling or pain. No neck or back pain. SKIN: No rash NEUROLOGIC: No headache, vertigo, loss of consciousness, or change in strength/ sensation. ENDOCRINE: No increased thirst. No abnormal weight change HEMATOLOGIC/LYMPHATIC: No anemia, easy bleeding, or history of blood clots. ALLERGIC/IMMUNOLOGIC: No hives or skin allergy. *Physical Exam - Vital Signs Last Vital Signs Temp Pulse Resp BP Pulse Ox 98.5 F 79 20 183/55 100 12/11/17 16:59 12/11/17 16:59 12/11/17 16:59 12/11/17 16:59 12/11/17 16:59 - Physical Exam Comments: 12/11/17 17:36 GENERAL: Awake, alert, and fully oriented, in no acute distress HEAD: No signs of trauma, normocephalic, atraumatic EYES: PERRLA, EOMI, sclera anicteric, conjunctiva clear ENT: Auricles normal inspection, hearing grossly normal, nares patent, oropharynx clear without exudates. Moist mucosa NECK: Normal ROM, supple, no lymphadenopathy, JVD, or masses LUNGS: No distress, speaks full sentences, clear to auscultation bilaterally HEART: Regular rate and rhythm, normal S1 and S2, no murmurs, rubs or gallops, peripheral pulses normal and equal bilaterally. ABDOMEN: Soft, nontender, normoactive bowel sounds. No guarding, no rebound. No masses EXTREMITIES : Normal inspection, Normal range of motion, no edema. No clubbing or cyanosis. NEUROLOGICAL: Cranial nerves II through XII grossly intact. Normal speech, normal gait, no focal sensorimotor deficits SKIN: Warm, Dry, normal turgor, no rashes or lesions noted ED Treatment Course - LABORATORY CBC & Chemistry Diagram: 12/11/17 19:37 12/11/17 19:37 Medical Decision Making - Medical Decision Making 12/11/17 17:38 27 yo F with h/o GERD who p/w R sided throat discomfort. BP 183/55, Vitals otherwise wnl, AF, A&Ox3. Exam unremarkable. ACS/MA r/o. R/o PNA. Possible GERD like symptoms. Low suspicion carotid dissection. Absent focal neuro deficits. No resp difficulty. Absent stridor, able to tolerate oral secretions. Low suspicion laryngeal edema or anaphylaxis. ED Course: EKG: NSR with absent JOHNSON, STD. Nml interval duration and axis. Carafate, Ranitidine, Maloox 12/11/17 20:22 CBC,CMP: Unremarkable BP improved 130/84 Pain resolved Patient stable for d/c with return precautions. Advised to f/u with PMD. *DC/Admit/Observation/Transfer Diagnosis at time of Disposition: Chest pressure - Discharge Dispostion Disposition: HOME Condition at time of disposition: Stable - Referrals Referrals: Handy Prieto [Primary Care Provider] - Wicho Contreras MD [Staff Physician] - Alo Green MD [Staff Physician] - - Patient Instructions Printed Discharge Instructions: DI for Atypical Chest Pain Additional Instructions: Please return to the emergency department with any new or worsening symptoms or concerns. Please follow up with your primary care physician within 72 hours. Please follow up with cardiology within one week. Please follow with ear,nose, throat, within one week. - Post Discharge Activity - Attestations Physician Attestion: 12/11/17 17:37 I attest to the information provided in this note.
[2017-12-11] MEDS ORDERED: RANITIDINE HCL 150 MG TABLET (FP) PO ONE (18:09)
[2017-12-11] MEDS ORDERED: SUCRALFATE 1 GM TABLET (FP) PO ONE (18:09)
[2017-12-11] MEDS ORDERED: MAG HYDROX/AL HYDROX/SIMETH 30 ML UNIT-DOSE CUP PO ONE (18:09)
[2017-12-11] MEDS ORDERED: SUCRALFATE 1 GM TABLET (FP) ONE (18:39)
[2017-12-11] MEDS ORDERED: MAG HYDROX/AL HYDROX/SIMETH 30 ML UNIT-DOSE CUP ONE (18:39)
[2017-12-11] MEDS ORDERED: RANITIDINE HCL 150 MG TABLET (FP) ONE (18:39)
--- NOTE | 2017-12-11 18:58 | PDOC ---
Attending Attestation - Resident Resident Name: Jules Veronica - ED Attending Attestation I have performed the following: I have examined & evaluated the patient, The case was reviewed & discussed with the resident, I agree w/resident's findings & plan, Exceptions are as noted - HPI HPI: 12/11/17 18:57 27y F presenting with foreign body/globus sensation in her throat for the past several days, endorses pressure like sensation in her neck that radiates from her throat to her R chest that feels like it is making it difficult to take a deep breath prior to arrival. state she currently feels better. denies any n/v, f/c, cp, diaphoresis, cough, abd pain, diarrhea, melena, bpr, dysuria, hematuria. LMP approx 1 month ago. on exam pts airway is patient, symmetric posterior pharynx lugns cta no pitting eema in lower extremities cardiac exam rrr, no mrg +ocps gerd vs viral syndrome will ck labs to r/o anemia, metabolic dernagement ekg wnl <Gregory Ortega - Last Filed: 12/11/17 19:18> - Physicial Exam PE: 12/12/17 06:42 Agree with resident exam - Medical Decision Making 12/11/17 20:44 I received pt on signout. She has normal labs and CXR and she has normalization of her vitals. She admits that she gets anxiety attacks and that she is under a great deal of stress. Also pt states that she has not been eating regularly and she is skipping meals. The GI cocktail that she received has helped her immensely. <Leah Rodriguez - Last Filed: 12/12/17 06:43> Heart Score/ECG Review - ECG Impressions Comment:: 12/11/17 19:20 Twelve-lead EKG was performed and reviewed by me. There is normal sinus rhythm with a normal rate. Rate 75 The axis is normal. The intervals are normal. There is normal R wave progression T wave flattening in lead 3 <Gregory Ortega - Last Filed: 12/11/17 19:18>
[2017-12-11 19:14] VITALS: BP 132/75; PULSE 76
[2017-12-11 19:48] LABS: BASO % 0.9 % (0-2.0); EOS % 0.8 % (0-4.5); HEMATOCRIT 36.1 % (32.4-45.2); HEMOGLOBIN 11.9 GM/dL (10.7-15.3); LYMPH % 42.5 % (8-40); MCH 28.4 pg (25.7-33.7); MEAN CELL VOLUME 86.2 fl (80-96); NEUT % 49.8 % (42.8-82.8); PLATELET COUNT 215 K/MM3 (134-434); RBC 4.19 M/mm3 (3.60-5.2); RDW 12.8 % (11.6-15.6); WHITE BLOOD COUNT 5.8 K/mm3 (4.0-10.0)
[2017-12-11 20:14] LABS: ALBUMIN 3.5 g/dl (3.4-5.0); ALK PHOS 61 U/L (45-117); ANION GAP 6 (8-16); BILIRUBIN,TOTAL 0.4 mg/dL (0.2-1.0); BLOOD UREA NITROGEN 10 mg/dL (7-18); CALCIUM 8.8 mg/dL (8.5-10.1); CHLORIDE 106 mmol/L (98-107); CO2 27 mmol/L (21-32); CREATININE 0.6 mg/dL (0.55-1.02); GLUCOSE,RANDOM 84 mg/dL (74-106); POTASSIUM 4.4 mmol/L (3.5-5.1); SGOT/AST 25 U/L (15-37); SGPT/ALT 87 U/L (12-78); SODIUM 139 mmol/L (136-145); TOT PROT 7.7 g/dl (6.4-8.2)
--- NOTE | 2017-12-13 10:11 | EKG ---
Test Reason : Blood Pressure : / mmHG Vent. Rate : 060 BPM Atrial Rate : 060 BPM P-R Int : 184 ms QRS Dur : 084 ms QT Int : 420 ms P-R-T Axes : 029 054 046 degrees QTc Int : 420 ms NORMAL SINUS RHYTHM WITH SINUS ARRHYTHMIA NORMAL ECG WHEN COMPARED WITH ECG OF 01-MAR-2017 05:41, NO SIGNIFICANT CHANGE WAS FOUND Confirmed by KOMAL YANEZ MD ([id number]) on 12/13/2017 10:11:02 AM Referred By: Confirmed By:KOMAL YANEZ MD
== END 2017-12-11 20:45 | disposition home or self-care (01) ==
LOC: JER 16:54
DX: R07.89 Other chest pain (principal); K21.9 Gastro-esophageal reflux disease without esophagitis; F41.0 Panic disorder [episodic paroxysmal anxiety]
CPT/HCPCS: 36415; 71046-TC-FY; 80053; 84703; 85025; 93005; 93010; 99282-25

== ENCOUNTER 2019-01-19 11:39 | Emergency (ER) | payer OTHER ==
[2019-01-19 11:47] VITALS: TEMP 98; BMI 33.4
[2019-01-19] MEDS ORDERED: SODIUM CHLORIDE 1,000 ML IV STA (12:25)
[2019-01-19] MEDS ORDERED: morphine CARPU-JECT 4 MG/1 ML DISP.SYRIN IVPUSH ONE (12:26)
[2019-01-19] MEDS ORDERED: ONDANSETRON 4 MG/2 ML VIAL IVPUSH ONE (12:26)
[2019-01-19] MEDS ORDERED: FAMOTIDINE 20 MG/50 ML IVPB 20 MG/50 ML MG IVPB ONE ×2 (12:26→12:42)
[2019-01-19] MEDS ORDERED: ONDANSETRON 4 MG/2 ML VIAL ONE (12:42)
[2019-01-19] MEDS ORDERED: morphine SULFATE 4 MG/ML VIAL ONE (12:42)
[2019-01-19 13:07] LABS: BASO % 0.6 % (0-2.0); EOS % 0.9 % (0-4.5); HEMATOCRIT 38.1 % (32.4-45.2); HEMOGLOBIN 12.7 GM/dL (10.7-15.3); LYMPH % 35.3 % (8-40); MCH 28.7 pg (25.7-33.7); MCHC 33.4 g/dl (32.0-36.0); MEAN CELL VOLUME 85.9 fl (80-96); MEAN PLT VOLUME 10.3 fl (7.5-11.1); MONO % 6.3 % (3.8-10.2); NEUT % 56.9 % (42.8-82.8); PLATELET COUNT 237 K/MM3 (134-434); RBC 4.43 M/mm3 (3.60-5.2); RDW 13.3 % (11.6-15.6); WHITE BLOOD COUNT 6.5 K/mm3 (4.0-10.0)
[2019-01-19 13:18] LABS: ALBUMIN 3.9 g/dl (3.4-5.0); BILIRUBIN,TOTAL 0.6 mg/dL (0.2-1); BLOOD UREA NITROGEN 11.5 mg/dL (7-18); CALCIUM 9.7 mg/dL (8.5-10.1); CREATININE 0.8 mg/dL (0.55-1.3); TOT PROT 8.2 g/dl (6.4-8.2)
--- NOTE | 2019-01-19 14:23 | PDOC ---
Documentation entered by Andreina Thakkar SCRIBE, acting as scribe for Cl Rivero MD. Cl Rivero MD: This documentation has been prepared by the Bijan carrasco Sammi, SCRIBE, under my direction and personally reviewed by me in its entirety. I confirm that the documentation accurately reflects all work, treatment, procedures, and medical decision making performed by me. 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 LMP 12/31. Denies possible , denies diarrhea/vb/fever/chills. no prevoius hx/o of pud or gall stones. Surgical history: C-sec x2 PCP: Handy Prieto Past History - Past Medical History Allergies/Adverse Reactions: Allergies Allergy/AdvReac Type Severity Reaction Status Date / Time No Known Allergies Allergy Verified 01/19/19 11:44 Home Medications: Ambulatory Orders Ibuprofen [Motrin -] 600 mg PO QID PRN #28 tablet 02/28/17 Ibuprofen 600 mg PO TID #20 tablet 01/19/19 Asthma: No Cancer: No Cardiac Disorders: No COPD: No Diabetes: No GI Disorders: Yes (umbalical hernia) HTN: No Seizures: No Thyroid Disease: No - Reproductive History (#): 2 Para: 1 Cervical CA: No Dysfunctional Uterine Bleeding: No Ectopic : No Endometrial CA: No Polycystic Ovaries: No Therapeutic (s) & number: No Tubal Ligation: No Spontaneous : 0 - Immunization History Immunization Up to Date: Yes - Suicide/Smoking/Psychosocial Hx Smoking Status: No Smoking History: Never smoked Have you smoked in the past 12 months: Yes Number of Cigarettes Smoked Daily: 0 Hx Alcohol Use: Yes Drug/Substance Use Hx: No Substance Use Type: Marijuana Hx Substance Use Treatment: No Review of Systems - Review of Systems Comments:: 01/19/19 13:05 CONSTITUTIONAL: No fever, no chills, no fatigue EYES: No visual changes ENT: No ear pain, no sore throat CARDIOVASCULAR: No chest pain, no palpitations RESPIRATORY: No cough, no SOB GI: (+)RUQ pain. (+)nausea and vomiting. no constipation, no diarrhea GENITOURINARY: No dysuria, no frequency, no hematuria MUSKULOSKELETAL: No backpain, no joint pain, no myalgias SKIN: No rash NEURO: No headache *Physical Exam - Vital Signs Last Vital Signs Temp Pulse Resp BP Pulse Ox 98 F 110 H 20 218/100 H 100 01/19/19 11:44 01/19/19 11:44 01/19/19 11:44 01/19/19 11:44 01/19/19 11:44 - Physical Exam Comments: 01/19/19 13:06 CONSTITUTIONAL: alert, awake, oriented. In pain. Obese. HEAD: Normocephalic; atraumatic EYES: PERRL; EOM intact ENMT: (+)dry mucous membranes. External appears normal; normal oropharynx NECK: Supple; non-tender; no cervical lymphadenopathy CARD: Normal S1, S2; no murmurs, rubs, or gallops RESP: Normal chest excursion with respiration; breath sounds clear and equal bilaterally; no wheezes, rhonchi, or rales ABD: (+)RUQ pain (+)actively vomiting. Soft, non-distended; no palpable organomegaly, no palpable hernias EXT: Normal ROM in all four extremities; non-tender to palpation; distal pulses intact SKIN: Warm, dry, no rash NEURO: No focal neurological deficiencies. ED Treatment Course - LABORATORY CBC & Chemistry Diagram: 01/19/19 12:40 01/19/19 12:40 - ADDITIONAL ORDERS Additional order review: Laboratory Results 01/19/19 01/19/19 12:40 12:40 Sodium 137 Potassium 4.0 Chloride 101 Carbon Dioxide 29 Anion Gap 8 BUN 11.5 Creatinine 0.8 Est GFR (CKD-EPI)AfAm 117.10 Est GFR (CKD-EPI)NonAf 101.04 Random Glucose 87 Calcium 9.7 Total Bilirubin 0.6 AST 17 ALT 24 Alkaline Phosphatase 58 Total Protein 8.2 Albumin 3.9 Lipase 132 Serum , Qual Negative 01/19/19 12:40 RBC 4.43 MCV 85.9 MCHC 33.4 RDW 13.3 MPV 10.3 Neutrophils % 56.9 Lymphocytes % 35.3 Monocytes % 6.3 Eosinophils % 0.9 Basophils % 0.6 - RADIOLOGY Radiology Studies Ordered: Category Date Time Status ABDOMEN US -LIMITED [US] Stat Ultrasound 01/19/19 12:27 Taken - Medications Given in the ED: ED Medications Discontinued Medications Generic Name Dose Route Start Last Admin Trade Name Freq PRN Reason Stop Dose Admin Famotidine/Sodium Chloride 20 mg in 50 mls @ 100 mls/hr 01/19/19 12:26 12:51 Pepcid 20 Mg Premixed Ivpb - IVPB 01/19/19 12:55 100 mls/hr ONCE ONE Administration Sodium Chloride 1,000 mls @ 1,000 mls/hr 01/19/19 12:25 01/19/19 12:51 Normal Saline - IV 01/19/19 13:24 1,000 mls/hr ASDIR STA Administration Morphine Sulfate 4 mg 01/19/19 12:26 01/19/19 12:51 Morphine Injection - IVPUSH 01/19/19 12:27 4 mg ONCE ONE Administration Ondansetron HCl 4 mg 01/19/19 12:26 01/19/19 12:51 Zofran Injection IVPUSH 01/19/19 12:27 4 mg ONCE ONE Administration Medical Decision Making - Medical Decision Making 01/19/19 14:24 Patient is a 28-year-old female who presents with severe right upper quadrant and epigastric pain that started postprandially associated with nausea and nonbloody nonbilious vomiting. On initial evaluation, patient is noted to be writhing in pain, with right upper quadrant tenderness and a positive Lundberg's. I suspect gallbladder disease. Will obtain CBC/CMP/lipase/UA./Serum . WIll Obtain RUQ US, will hydrate, will administer pain meds and will reascess. 01/19/19 16:33 Patient reassessed. Patient is resting comfortably, symptom free, tolerates by mouth. Repeat abdominal exam reveals no focal tenderness. CBC/CMP within normal limit. Right upper quadrant son reveals multiple stones but no evidence of acute cholecystitis. Patient will be discharged with outpatient surgical follow- up and dietary adjustment. *DC/Admit/Observation/Transfer Diagnosis at time of Disposition: Cholelithiasis Qualifiers: Cholelithiasis location: gallbladder Cholecystitis presence: without cholecystitis Biliary obstruction: without biliary obstruction Qualified Code(s) : K80.20 - Calculus of gallbladder without cholecystitis without obstruction - Discharge Dispostion Disposition: HOME Condition at time of disposition: Stable - Prescriptions Prescriptions: Ibuprofen 600 mg PO TID #20 tablet - Referrals Referrals: Handy Prieto [Primary Care Provider] - Alphonse Pope MD [Staff Physician] - - Patient Instructions Printed Discharge Instructions: DI for Gallstones - Post Discharge Activity Forms/Work/School Notes: Back to Work - Attestations Physician Attestion: 01/19/19 14:23 The documentation was prepared by the scribe under my direct supervision. I have reviewed the documentation which correctly represents the findings, medical decision-making and critical action taken by me.
[2019-01-19 15:43] VITALS: BP 134/78; PULSE 86
[2019-01-19 16:11] LABS: PH,URINE 8.5 (5.0-8.0); URINE APPEARANCE CLEAR; URINE BILIRUBIN NEGATIVE (NEGATIVE); URINE COLOR YELLOW; URINE GLUCOSE (UA) NEGATIVE (NEGATIVE); URINE KETONE NEGATIVE (NEGATIVE); URINE LEUK ESTERASE NEGATIVE (NEGATIVE); URINE NITRITE NEGATIVE (NEGATIVE); URINE PROTEIN NEGATIVE (NEGATIVE); URINE UROBILINOGEN 0.2 mg/dL (0.2-1.0)
== END 2019-01-19 16:49 | disposition home or self-care (01) ==
LOC: JER 11:39
PROC: 3E033GC Introduction of Other Therapeutic Substance into Peripheral Vein, Percutaneous Approach (ICD-10-PCS; principal; 2019-01-19)
PROC: 3E033NZ Introduction of Analgesics, Hypnotics, Sedatives into Peripheral Vein, Percutaneous Approach (ICD-10-PCS; 2019-01-19)
PROC: 3E033GC Introduction of Other Therapeutic Substance into Peripheral Vein, Percutaneous Approach (ICD-10-PCS; 2019-01-19)
PROC: 3E0337Z Introduction of Electrolytic and Water Balance Substance into Peripheral Vein, Percutaneous Approach (ICD-10-PCS; 2019-01-19)
DX: K80.20 Calculus of gallbladder without cholecystitis without obstruction (principal)
CPT/HCPCS: 36415; 76705-TC; 80053; 81003; 83690; 84703; 85025; 87086; 99283-25; J7030

== ENCOUNTER 2019-01-19 23:26 | Emergency (ER) | payer OTHER ==
[2019-01-20 00:13] VITALS: BP 110/73; PULSE 72; TEMP 98.7; BMI 34.4
[2019-01-20] MEDS ORDERED: ONDANSETRON 4 MG/2 ML VIAL IVPB ONE (02:18)
[2019-01-20] MEDS ORDERED: ACETAMINOPHEN 1000 MG/100 ML VIAL (NON FORMULARY) IVPB ONE (02:18)
--- NOTE | 2019-01-20 02:30 | PDOC ---
Attending Attestation - Resident Resident Name: Bveerly Chaudhry - ED Attending Attestation I have performed the following: I have examined & evaluated the patient, The case was reviewed & discussed with the resident, I agree w/resident's findings & plan - HPI HPI: 01/20/19 03:49 28-year-old female diagnosed with biliary colic earlier in the day now here with increased pain after attempting to drink. Fever. Positive vomiting. - Physicial Exam PE: 01/20/19 03:55 agree with resident exam - Medical Decision Making 01/20/19 03:55 28-year-old female with biliary colic Patient is afebrile and has no pain at this time She is tolerating by mouth liquids will DC with strict instructions to return should she develop repeated vomiting , worsening pain or fever Otherwise will follow-up with surgery for further management
[2019-01-20] MEDS ORDERED: ACETAMINOPHEN INJECTION 100 ML IVPB ONE (02:50)
[2019-01-20] MEDS ORDERED: ONDANSETRON 4 MG/2 ML VIAL ONE (02:50)
--- NOTE | 2019-01-20 03:38 | PDOC ---
History of Present Illness - General Chief Complaint: Pain Stated Complaint: ABDOMINAL PAIN Time Seen by Provider: 01/20/19 02:12 History Source: Patient Exam Limitations: No Limitations - History of Present Illness Initial Comments: 01/20/19 07:15 28yo F with no significant PMH presenting to ED with complaints of vomiting and RUQ abdominal pain. Pt states that she was in here in the ED 12h ago with similar complaints. workup showed cholelithiasis without evidence of acute cholecystitis. Patient's pain was managed and surgical consult given. Pt states she went home and went to work. She said she was drinking water when the pain returned and she vomited 3x (nbnb). Right now patient is asymptomatic. Past History - Past Medical History Allergies/Adverse Reactions: Allergies Allergy/AdvReac Type Severity Reaction Status Date / Time No Known Allergies Allergy Verified 01/19/19 11:44 Home Medications: Ambulatory Orders Ibuprofen [Motrin -] 600 mg PO QID PRN #28 tablet 02/28/17 Ibuprofen 600 mg PO TID #20 tablet 01/19/19 Asthma: No Cancer: No Cardiac Disorders: No COPD: No Diabetes: No GI Disorders: Yes (umbalical hernia) HTN: No Seizures: No Thyroid Disease: No - Reproductive History (#): 2 Para: 1 Cervical CA: No Dysfunctional Uterine Bleeding: No Ectopic : No Endometrial CA: No Polycystic Ovaries: No Therapeutic (s) & number: No Tubal Ligation: No Spontaneous : 0 - Immunization History Immunization Up to Date: Yes - Suicide/Smoking/Psychosocial Hx Smoking Status: No Smoking History: Never smoked Have you smoked in the past 12 months: No Number of Cigarettes Smoked Daily: 0 Information on smoking cessation initiated: No Hx Alcohol Use: No Drug/Substance Use Hx: No Substance Use Type: Marijuana Hx Substance Use Treatment: No Review of Systems - Review of Systems Constitutional: No: Symptoms Reported HEENTM: No: Symptoms Reported Respiratory: No: Symptoms reported Cardiac (ROS): No: Symptoms Reported ABD/GI: Yes: See HPI : No: Symptoms Reported Musculoskeletal: No: Symptoms Reported Integumentary: No: Symptoms Reported Neurological: No: Symptoms reported *Physical Exam - Vital Signs Last Vital Signs Temp Pulse Resp BP Pulse Ox 98.7 F 72 18 110/73 100 01/20/19 00:06 01/20/19 00:06 01/20/19 00:06 01/20/19 00:06 01/20/19 00:06 - Physical Exam General Appearance: Yes: Appropriately Dressed, Obese. No: Apparent Distress HEENT: positive: EOMI, ANICETO Neck: positive: Trachea midline, Supple Respiratory/Chest: positive: Lungs Clear, Normal Breath Sounds. negative: Crackles, Rhonchi Cardiovascular: positive: Regular Rhythm, Regular Rate, S1, S2. negative: Edema , JVD, Murmur Vascular Pulses: Dorsalis-Pedis (R): 2+, Doralis-Pedis (L): 2+ Gastrointestinal/Abdominal: positive: Normal Bowel Sounds, Soft. negative: Tender, Distended, Guarding, Rebound Musculoskeletal: negative: CVA Tenderness Extremity: positive: Normal Capillary Refill. negative: Swelling, Calf Tenderness Integumentary: positive: Normal Color, Dry, Warm Neurologic: positive: contact center specialist II-XII NML intact, Fully Oriented, Alert, Normal Mood/ Affect, Normal Response, Motor Strength 10/10 ED Treatment Course - Medications Given in the ED: ED Medications Discontinued Medications Generic Name Dose Route Start Last Admin Trade Name Anish PRN Reason Stop Dose Admin Acetaminophen 1,000 mg 01/20/19 02:18 01/20/19 02:53 Ofirmev Injection - IVPB 01/20/19 02:19 Not Given ONCE ONE Ondansetron HCl 4 mg 01/20/19 02:18 01/20/19 02:53 Zofran Injection IVPB 01/20/19 02:19 Not Given ONCE ONE Medical Decision Making - Medical Decision Making 01/20/19 07:17 28yo F with no significant PMH presenting to ED with complaints of vomiting and RUQ abdominal pain. Pt states that she was in here in the ED 12h ago with similar complaints. workup showed cholelithiasis without evidence of acute cholecystitis. Patient's pain was managed and surgical consult given. Pt states she went home and went to work. She said she was drinking water when the pain returned and she vomited 3x (nbnb). Right now patient is asymptomatic. pt likely has biliary colic. asymptomatic in the ed without tenderness. labs ordered but pt refused but I was going to cancel anyway. She had labs drawn 12h prior with normal results. Will po challenge patient. pt given juice and tolerated without vomiting or pain. safe for dc home. has surgical referral and rx for pain management prescribed in visit earlier today. given return precautions *DC/Admit/Observation/Transfer Diagnosis at time of Disposition: Biliary colic - Discharge Dispostion Disposition: HOME Condition at time of disposition: Good - Referrals Referrals: Handy Prieto [Primary Care Provider] - - Patient Instructions Printed Discharge Instructions: DI for Biliary Colic Additional Instructions: You were seen in the emergency room today for abdominal pain. You have gallbladder stones and it is causing biliary colic. You can take Tylenol or ibuprofen for pain as needed. Referral to surgery is provided below. Keep your appointment with general surgery. Try a liquid diet before trying solids Please come back to the emergency room if you are unable to eat or drink anything, if you have worsening pain, you develop fever, you are jaundiced or if any new concerning symptom develops - Post Discharge Activity
== END 2019-01-20 04:15 | disposition home or self-care (01) ==
LOC: JER 23:26
DX: K80.50 Calculus of bile duct without cholangitis or cholecystitis without obstruction (principal)
CPT/HCPCS: 99283-25

== ENCOUNTER 2019-01-20 15:00 | Inpatient (IN) | payer OTHER | END 2019-01-22 12:56 | disposition home or self-care (01) | LOC: J6S 01-22 00:34 → JER 15:00 → JERBED 18:51 → J6S 20:58 ==

== ENCOUNTER 2019-02-11 05:30 | Inpatient (IN) | payer OTHER | END 2019-02-13 12:01 | disposition home or self-care (01) | LOC: JER 05:30 → JERBED 11:35 → J5S 19:12 ==

== ENCOUNTER 2019-05-23 08:24 | Emergency (ER) | payer OTHER ==
[2019-05-23 09:16] VITALS: BP 110/75; PULSE 64; TEMP 98.2; BMI 34.0
--- NOTE | 2019-05-23 09:25 | PDOC ---
History of Present Illness - General Chief Complaint: Cold Symptoms Stated Complaint: FEVER/ COUGH Time Seen by Provider: 05/23/19 08:59 History Source: Patient - History of Present Illness Initial Comments: 05/23/19 11:00 Ms. Walsh is a 28 y/o woman with no relevant PMH p/w four days of cough, fevers, congestion. She reports that her symptoms began on Thursday evening, and peaked on Thursday when she awoke feeling ill with a measured fever of 102F. She reports that her children have also become sick with similar symptoms since then. She reports that she has been feeling better today, and denies any fevers for the past 2 days. She is unsure if she had an influenza vaccine this year. Past History - Past Medical History Allergies/Adverse Reactions: Allergies Allergy/AdvReac Type Severity Reaction Status Date / Time No Known Allergies Allergy Verified 05/23/19 08:48 Home Medications: Ambulatory Orders NK [No Known Home Medication] 05/23/19 Asthma: No Cancer: No Cardiac Disorders: No COPD: No Diabetes: No GI Disorders: Yes (umbalical hernia) HTN: No Seizures: No Thyroid Disease: No - Reproductive History (#): 2 Para: 1 Cervical CA: No Dysfunctional Uterine Bleeding: No Ectopic : No Endometrial CA: No Polycystic Ovaries: No Therapeutic (s) & number: No Tubal Ligation: No Spontaneous : 0 - Immunization History Immunization Up to Date: Yes - Psycho Social/Smoking Cessation Hx Smoking Status: No Smoking History: Never smoked Have you smoked in the past 12 months: No Number of Cigarettes Smoked Daily: 0 Hx Alcohol Use: No Drug/Substance Use Hx: Yes (MARIJUNA) Substance Use Type: Marijuana Hx Substance Use Treatment: No Review of Systems - Review of Systems Able to Perform ROS?: Yes Comments:: 05/23/19 10:09 ROS: GENERAL/CONSTITUTIONAL: Fever, chills. No weakness. HEAD, EYES, EARS, NOSE AND THROAT: Congestion, cough. No change in vision. No ear pain or discharge. CARDIOVASCULAR: No chest pain or shortness of breath RESPIRATORY: Cough. No wheezing, or hemoptysis. GASTROINTESTINAL: No nausea, vomiting, diarrhea or constipation. GENITOURINARY: No dysuria, frequency, or change in urination. MUSCULOSKELETAL: No joint or muscle swelling or pain. No neck or back pain. SKIN: No rash NEUROLOGIC: Headache. No vertigo, loss of consciousness, or change in strength/ sensation. ENDOCRINE: No increased thirst. No abnormal weight change HEMATOLOGIC/LYMPHATIC: No anemia, easy bleeding, or history of blood clots. ALLERGIC/IMMUNOLOGIC: No hives or skin allergy. *Physical Exam - Vital Signs Last Vital Signs Temp Pulse Resp BP Pulse Ox 98.2 F 64 17 110/75 99 05/23/19 08:48 05/23/19 08:48 05/23/19 08:48 05/23/19 08:48 05/23/19 08:48 - Physical Exam 05/23/19 10:10 PE: GENERAL: Awake, alert, and fully oriented, in no acute distress HEAD: No signs of trauma, normocephalic, atraumatic EYES: PERRLA, EOMI, sclera anicteric, conjunctiva clear ENT: Auricles normal inspection, hearing grossly normal, nares patent, oropharynx clear without exudates. Moist mucosa NECK: Normal ROM, supple, no lymphadenopathy, JVD, or masses LUNGS: No distress, speaks full sentences, clear to auscultation bilaterally HEART: Regular rate and rhythm, normal S1 and S2, no murmurs, rubs or gallops, peripheral pulses normal and equal bilaterally. ABDOMEN: Soft, nontender, normoactive bowel sounds. No guarding, no rebound. No masses EXTREMITIES : Normal inspection, Normal range of motion, no edema. No clubbing or cyanosis NEUROLOGICAL: Cranial nerves II through XII grossly intact. Normal speech, normal gait, no focal sensorimotor deficits SKIN: Warm, Dry, normal turgor, no rashes or lesions noted Medical Decision Making - Medical Decision Making 05/23/19 11:02 Well appearing 28F with no relevant PMH and no flu vaccine w/reassuring physical exam p/w four days of cough, congestion, fevers most consistent with viral URI vs influenza. Plan: CXR No need for influenza swab given duration of symptoms Dispo: Discharge Discharge - Discharge Information Problems reviewed: Yes Clinical Impression/Diagnosis: URI (upper respiratory infection) Qualifiers: URI type: unspecified URI Qualified Code(s): J06.9 - Acute upper respiratory infection, unspecified Condition: Stable Disposition: HOME - Admission No - Follow up/Referral Referrals: Handy Prieto [Primary Care Provider] - - Patient Discharge Instructions Additional Instructions: You were seen in the ER for cough, fevers, congestion. Please see your primary care provider as soon as possible, in 7-10 days. Please return to the ER if you develop high fevers, weakness, confusion. - Post Discharge Activity Work/Back to School Note: Back to Work
--- NOTE | 2019-05-23 10:17 | PDOC ---
Attending Attestation - Resident Resident Name: Robby Abdi - ED Attending Attestation I have performed the following: I have examined & evaluated the patient, The case was reviewed & discussed with the resident, I agree w/resident's findings & plan - HPI HPI: 05/23/19 10:14 Healthy 28-year-old female with no significant past medical history presents on fourth day with her children also has patient's complaining of URI symptoms, now improving. Patient reports fever/chills, nasal congestion with dry cough, no respiratory distress but some chest congestion, was self treating with Advil Cold and Sinus with significant relief over the weekend, presents today feeling much better but needing a note for work. She also presents with her 2 children , who had similar URI symptoms. Cannot recall whether she received influenza vaccination this year, smokes marijuana but not cigarettes, no history of pneumonia or respiratory illness, no GI complaints. No recent travel. - Physicial Exam PE: 05/23/19 10:16 Vital signs normal Seated comfortably in chair speaking full sentences and texting on her cell phone Positive nasal congestion, otherwise throat is clear and neck supple Lungs are clear without focally decreased breath sounds or wheezing Heart is regular without murmur Abdomen benign No edema - Medical Decision Making 05/23/19 10:16 Healthy 28-year-old female with URI symptoms, now day 4 and admittedly feeling better. Patient is well-appearing with normal vital signs and no focal findings on examination to suggest acute bacterial infection, no evidence of respiratory distress. Presentation is most consistent with viral etiology, question URI versus influenza. Would not meet criteria for influenza treatment. Discussed with patient, recommend a chest x-ray but patient declined because of recent radiation exposure. Chest x-ray could be deferred on clinical guidelines. Continue [id number] medications as needed Understands return criteria
== END 2019-05-23 10:21 | disposition home or self-care (01) ==
LOC: JER 08:24
DX: J06.9 Acute upper respiratory infection, unspecified (principal)
CPT/HCPCS: 99281-25

== ENCOUNTER 2020-06-30 11:45 | Emergency (ER) | payer OTHER ==
[2020-06-30 11:57] VITALS: BP 110/66; PULSE 78; TEMP 98.3; BMI 33.7
[2020-06-30] MEDS ORDERED: ACETAMINOPHEN 325 MG TABLET (FP) PO ONE (12:04)
[2020-06-30] MEDS ORDERED: ACETAMINOPHEN 325 MG TABLET (FP) ONE (12:06)
== END 2020-06-30 13:21 | disposition home or self-care (01) ==
LOC: JERFT 11:45
DX: S49.92XA Unspecified injury of left shoulder and upper arm, initial encounter (principal)
CPT/HCPCS: 76817-TC; 99284-25

== ENCOUNTER 2021-02-25 09:35 | Emergency (ER) | payer OTHER ==
[2021-02-25 09:40] VITALS: BP 122/70; PULSE 62; TEMP 97.9; BMI 32.5
[2021-02-25] MEDS ORDERED: IBUPROFEN 400 MG TABLET (FP) PO ONE ×2 (10:33→10:40)
== END 2021-02-25 10:43 | disposition home or self-care (01) ==
LOC: JERFT 09:35
PROC: 2W3MX1Z Immobilization of Left Lower Extremity using Splint (ICD-10-PCS; principal; 2021-02-25)
DX: S93.402A Sprain of unspecified ligament of left ankle, initial encounter (principal); W10.8XXA Fall (on) (from) other stairs and steps, initial encounter; Y93.01 Activity, walking, marching and hiking
CPT/HCPCS: 73610-TC-LT-FY; 73630-TC-LT; 99283-25

== ENCOUNTER 2024-11-07 05:33 | Day surgery (SDC) | payer OTHER ==
[2024-11-02 15:07] VITALS: BMI 35.2
[2024-11-07] MEDS ORDERED: GLYCOPYRROLATE 0.2 MG/1 ML VIAL ONE (11:33)
[2024-11-07] MEDS ORDERED: ONDANSETRON 4 MG/2 ML VIAL ONE (11:33)
[2024-11-07] MEDS ORDERED: DEXAMETHASONE SOD PHOSPHATE 4 MG/1 ML VIAL ONE (11:33)
[2024-11-07] MEDS ORDERED: KETOROLAC TROMETHAMINE 30 MG/1 ML VIAL ONE (11:33)
[2024-11-07] MEDS ORDERED: LIDOCAINE HCL/PF 2% SDV 5ML VIAL ONE (11:33)
[2024-11-07] MEDS ORDERED: PROPOFOL 20 ML ONE ×3 (11:36→13:16)
[2024-11-07] MEDS ORDERED: MIDAZOLAM HCL 2 MG/2 ML SINGLE DOSE VIAL ONE (11:37)
[2024-11-07] MEDS ORDERED: oxyCODONE HCL 5 MG TABLET PO PRN (11:52)
[2024-11-07] MEDS ORDERED: PROMETHAZINE HCL 25 MG/1 ML VIAL IVPB PRN (11:52)
[2024-11-07] MEDS ORDERED: LACTATED RINGERS SOLUTION 1,000 ML IV SCH (12:00)
[2024-11-07] MEDS ORDERED: ACETAMINOPHEN INJECTION 100 ML ONE (12:32)
[2024-11-07] MEDS: ceFAZolin SODIUM 1 GM VIAL IVPB ONE (13:01)
[2024-11-07] MEDS ORDERED: ceFAZolin SODIUM 1 GM VIAL ONE (13:01)
[2024-11-07 14:38] VITALS: RESP 20
[2024-11-07 15:43] VITALS: BP 111/66; PULSE 63; TEMP 97.1
== END 2024-11-07 15:45 | disposition home or self-care (01) ==
LOC: JASU-SURG 05:33
PROVIDERS: ATTEND Obstetrics & Gynecology
PROC: 0UB98ZZ Excision of Uterus, Via Natural or Artificial Opening Endoscopic (ICD-10-PCS; principal; 2024-11-07 11:15)
DX: D25.0 Submucous leiomyoma of uterus (principal); N85.6 Intrauterine synechiae
CPT/HCPCS: 88305-TC; 94760; J0131

== ENCOUNTER 2024-11-17 19:51 | Emergency (ER) | payer OTHER ==
[2024-11-17 20:07] VITALS: TEMP 98.2; BMI 35.9
[2024-11-17] MEDS ORDERED: ACETAMINOPHEN 325 MG TABLET (FP) ONE (20:33)
[2024-11-17] MEDS: ACETAMINOPHEN 325 MG TABLET (FP) PO ONE (20:52)
[2024-11-17 20:57] LABS: ABSOLUTE IMMATURE GRANULOCYTES 0.02 x10^3/uL (0.0-0.031); EOSINOPHIL % 1.3 % (0.7-5.8); HEMATOCRIT 37.4 % (34.1-44.9); RDW 13.3 % (12.1-16.8)
[2024-11-17 20:58] LABS: BASOPHILS # 0.05 x10^3/uL (0.01-0.08); HEMOGLOBIN 11.7 g/dL (11.2-15.7); MCHC 31.3 g/dl (32.2-35.5); MEAN PLT VOLUME 11.4 fl (9.4-12.3); MONOCYTE # 0.46 x10^3/uL (0.24-0.86); MONOCYTE % 5.9 % (4.7-12.5); PLATELET COUNT 274 x10^3/uL (182-369)
[2024-11-17 21:10] LABS: INR 0.97 (0.83-1.09); PROTHROMBIN TIME (PATIENT) 10.6 SEC (9.7-13.0)
[2024-11-17 21:13] LABS: ACTIVATED PTT 35.4 SECONDS (25.2-36.5)
[2024-11-17 21:30] LABS: ALBUMIN 3.5 g/dl (3.4-5.0); BLOOD UREA NITROGEN 11.7 mg/dL (7-18); CALCIUM 9.7 mg/dL (8.5-10.1)
[2024-11-17 21:33] LABS: CREATININE 0.8 mg/dL (0.55-1.3)
[2024-11-17 21:35] LABS: BILIRUBIN,TOTAL 0.2 mg/dL (0.2-1); TOT PROT 7.5 g/dl (6.4-8.2)
[2024-11-17 23:58] VITALS: BP 118/80; PULSE 55; RESP 19
[2024-11-18] MEDS ORDERED: FAMOTIDINE 20 MG/50 ML IVPB 20 MG/50 ML MG IVPB ONE (00:07)
[2024-11-18] MEDS ORDERED: MAG HYDROX/AL HYDROX/SIMETH 30 ML UNIT-DOSE CUP ONE (00:07)
[2024-11-18] MEDS: FAMOTIDINE 20 MG/50 ML IVPB 20 MG/50 ML MG IVPB ONE (00:19)
[2024-11-18] MEDS: MAG HYDROX/AL HYDROX/SIMETH 30 ML UNIT-DOSE CUP PO ONE (00:21)
[2024-11-18 20:26] LABS: HCV DIAGNOSTIC IN-HOUSE W/RFLX NON-REACTIVE (NONREACTIVE); HIV INTERPRETATION NEGATIVE (NEGATIVE)
== END 2024-11-18 01:19 | disposition home or self-care (01) ==
LOC: JER 19:51
PROC: 3E033GC Introduction of Other Therapeutic Substance into Peripheral Vein, Percutaneous Approach (ICD-10-PCS; principal; 2024-11-17)
DX: R07.89 Other chest pain (principal); R11.0 Nausea
CPT/HCPCS: 0241U-QW; 36415; 71046-TC-FY; 71275-TC; 80053; 84484; 84702; 85025; 85379; 85610; 85730; 86803; 87389; 93005; 93010; 99285-25; Q9967

== ENCOUNTER 2025-01-06 21:05 | Emergency (ER) | payer OTHER ==
[2025-01-06 21:11] VITALS: RESP 18; TEMP 98.8; BMI 43.3
[2025-01-06 22:15] LABS: MCHC 31.4 g/dl (32.2-35.5); MEAN CELL VOLUME 89.8 fl (79.4-94.8); MEAN PLT VOLUME 11.3 fl (9.4-12.3); RDW 13.6 % (12.1-16.8)
[2025-01-06] MEDS: LORazepam 2 MG/ML SDV VIAL IVPUSH ONE (22:17)
[2025-01-06 22:42] LABS: CO2 28.0 mmol/L (21-32); GLUCOSE,RANDOM 90.0 mg/dL (74-106)
[2025-01-06 22:45] LABS: SGOT/AST 15.0 U/L (15-37); SGPT/ALT 26.0 U/L (13-61)
[2025-01-06 22:46] LABS: CREATININE 0.9 mg/dL (0.55-1.3)
[2025-01-06 22:46] LABS: URINE APPEARANCE CLEAR; URINE BILIRUBIN NEGATIVE (NEGATIVE); URINE COLOR YELLOW; URINE GLUCOSE (UA) NEGATIVE (NEGATIVE); URINE KETONE NEGATIVE (NEGATIVE); URINE LEUK ESTERASE NEGATIVE (NEGATIVE); URINE NITRITE NEGATIVE (NEGATIVE); URINE PROTEIN NEGATIVE (NEGATIVE); URINE UROBILINOGEN 1.0 mg/dL (0.2-1.0)
[2025-01-06 22:47] LABS: TOT PROT 7.2 g/dl (6.4-8.2)
[2025-01-06 22:48] LABS: ALK PHOS 58.0 U/L (45-117)
[2025-01-07 00:10] VITALS: BP 117/84; PULSE 60
[2025-01-07 00:58] LABS: HCV DIAGNOSTIC IN-HOUSE W/RFLX NON-REACTIVE (NONREACTIVE); HIV INTERPRETATION NEGATIVE (NEGATIVE)
== END 2025-01-07 00:11 | disposition home or self-care (01) ==
LOC: JER 21:05
PROC: 3E033GC Introduction of Other Therapeutic Substance into Peripheral Vein, Percutaneous Approach (ICD-10-PCS; principal; 2025-01-06)
DX: R20.0 Anesthesia of skin (principal); R20.2 Paresthesia of skin; F41.9 Anxiety disorder, unspecified; R07.89 Other chest pain; R25.3 Fasciculation; R51.9 Headache, unspecified
CPT/HCPCS: 36415; 71045-TC-FY; 80053; 81003; 84484; 84703; 85025; 85730; 86803; 87086; 87389; 93005; 93010; 99285-25